=== PATIENT | female | born 1950 | race Two or more races ===

== ENCOUNTER 2025-05-25 08:50 | Inpatient (IN) | payer OTHER ==
[~2025-05-25] VITALS: Ht 162.6 cm; Wt 89.0 kg
[2025-05-25] VITALS (32 sets, daily range): BP systolic 99–154; BP diastolic 39–74; PULSE 90–131; RESP 14–35; TEMP 93.6–97.5; O2SAT 97–100
[2025-05-25] MEDS: SUCCINYLCHOLINE CHLORIDE 20 MG/ML 10ML VIAL IV ONE ×2 (08:57→08:58)
[2025-05-25] MEDS: ETOMIDATE (2MG/ML) 20ML VIAL IV ONE ×2 (08:57→08:58)
--- NOTE | 2025-05-25 09:01 | ED.PDOC ---
SOB-HPI HPI Comments 74 y/o F, BIBA, with known PMHx of HTN presents to the ED for CC of respiratory distress. EMS reports, patient is coming from home where called d/t finding patient unresponsive this morning (05/25/25) in the restroom; LSN was approximately 2200 last night (05/24/25) . Per EMS upon arrival to scene patient was found to have labored breathing with a respiratory rate from 4-15 breaths, tachycardiac with a HR of 135, and hypertensive with a blood pressure of 184/46mmHg. In the field patient was given [id number], with no change in status. Time Seen by MD: 09:00 Reviewed notes: Nurses Notes, Brine Purifier Notes, Medications, Allergies Information Source: Emergency Med Personnel Mode of Arrival: EMS Severity: Moderate Timing: Minutes Duration: Since onset PE Risk Factors: None Prehospital treatment: Other (narcan) Modifying Factors: Nothing Past Medical History PAST MEDICAL HISTORY: HTN Surgical History: Unknown BUSINESS BANKING SALES ASSISTANT History: Unknown Family History Family History: Unknown Social History Smoker: Unknown Alcohol: Unknown Drugs: Unknown Lives In: Home Unable to Obtain due to: Medical Urgency Physical Exam General Appearance: Severe Distress HEENT: Pale [place] (L), Pale [place] (R), TMs Normal Neck: Full Range of Motion, Non-Tender, Normal, Normal Inspection Respiratory: Chest Non-Tender, Lungs Clear, No Accessory Muscle Use, No Respiratory Distress, Normal Breath Sounds Cardiovascular: No Edema, No JVD, No Murmur, No Gallop, Tachycardia Breast Exam: Deferred Gastrointestinal: No Organomegaly, Non Tender, No Pulsatile Mass, Normal Bowel Sounds, Soft Genitalia: Deferred Pelvic: Deferred Rectal: Deferred Extremities: No calf tenderness, Normal capillary refill, No pedal edema Musculoskeletal : Apperance: Normal Neurologic: Motor Weakness, Other (The patient is altered at this time) Cerebellar Function: Unable to Test Reflexes: NOT DONE Skin: Dry, Pallor, Warm Lymphatic: No Adenopathy EKG EKG : Pulse Rate (adult): 122 [place]: Normal Cardiac Rhythm: Afib Block: None Hypertrophy: None ST: Normal Was a procedure done? 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: Other medical staff Indication: Hypotension, CVP monitoring, Suspected infection Room prepared for procedure: Yes Plastics Bench Mechanic performed hand hygien: No Maximal sterile barrier precau: Mask/Eye shield, Sterile gown, Cap, Sterlie gloves, Large sterlie drape Skin Preparation: Chlorhexidine gluconate Skin preparation completely dr: Yes Insertion site: Internal jugular Central line catheter type: [id number] dialysis Number of lumens: 3 Central line exchanged over a: No Antiseptic ointment applied to: Yes Post Assessment: Chest X-Ray Informed consent obtained: No Risks/benefits/alt described: No Intubation Indication: Altered Mental Status Pretreated with: Sedation Intubation Approach: Orotracheal Intubation size: cm (8.0, secured 24cm at the teeth ) Informed consent obtained: Yes Risks/benefits/alt described: Yes Differential Dx Differential Diagnosis: Respiratory Distress X-Ray, Labs, Meds, VS Vital Signs Date Time Temp Pulse Resp B/P (MAP) Pulse Ox O2 Delivery O2 Flow Rate FiO2 05/25/25 14:30 98 12 136/59 (84) 100 05/25/25 14:15 141/53 05/25/25 14:15 101 12 137/60 (85) 100 05/25/25 14:00 98 12 128/57 (80) 100 05/25/25 13:45 92 12 130/50 (76) 100 05/25/25 13:30 100 12 126/59 (81) 100 05/25/25 13:25 107 27 113/53 (73) 100 35 05/25/25 13:15 107/53 05/25/25 13:15 115 12 107/53 (71) 100 05/25/25 13:00 111 12 126/50 (75) 100 05/25/25 13:00 107 05/25/25 12:45 107 12 149/62 (91) 100 05/25/25 12:30 109 12 155/71 (99) 100 05/25/25 12:15 152/68 05/25/25 12:15 110 12 146/67 (93) 100 05/25/25 12:00 123 12 147/75 (99) 100 05/25/25 11:45 109 12 155/78 (103) 100 05/25/25 11:30 88 12 151/74 (99) 100 05/25/25 11:15 105 12 154/74 (100) 100 05/25/25 11:15 154/74 05/25/25 11:05 110 31 156/73 (100) 100 40 05/25/25 11:00 104 12 154/88 (110) 100 05/25/25 10:45 111 12 159/77 (104) 100 05/25/25 10:30 108 12 157/89 (111) 100 05/25/25 10:25 106 13 163/69 (100) 100 05/25/25 10:15 138/79 05/25/25 10:15 105 12 138/79 (98) 100 05/25/25 10:06 98 55 05/25/25 10:05 106 13 164/80 (108) 100 05/25/25 10:00 102 13 166/88 (114) 100 05/25/25 09:55 113 13 161/81 (107) 100 05/25/25 09:50 191/98 05/25/25 09:40 118 18 191/98 (129) 100 05/25/25 09:38 193/104 05/25/25 09:35 118 18 191/98 (129) 100 05/25/25 09:30 93.2 131 17 186/82 (116) 100 93.2 05/25/25 09:30 131 17 100 Mechanical Ventilator+ 100 100 05/25/25 09:16 119 05/25/25 09:10 122 05/25/25 09:00 93.2 131 17 186/82 100 93.2 05/25/25 09:00 98 19 203/107 (139) 100 100 05/25/25 08:59 122 Lab Test 05/25/25 12:46 05/25/25 11:00 05/25/25 10:23 05/25/25 10:14 Range/Units Sodium Level 151 H 136-145 mmol/L Potassium Level 5.3 H 3.5-5.1 mmol/L Chloride Level 107 98-107 mmol/L Carbon Dioxide Level < 10 *L 20-31 mmol/L Anion Gap 34.34065 H 5-15 Blood Urea Nitrogen 19 9-23 mg/dL Creatinine 2.11 #H 0.550-1.02 mg/dL Glomerular Filtration Rate Calc 24 >90 mL/min BUN/Creatinine Ratio 9.0 L 10.0-20.0 Serum Glucose 126 H 74-106 mg/dL Calcium Level 10.3 8.7-10.4 mg/dL Total Bilirubin 0.5 0.2-1.0 mg/dL Aspartate Amino Transferase (AST) 86 H 13-40 U/L Alanine Aminotransferase (ALT) 36 7-40 U/L Alkaline Phosphatase 140 H 46-116 U/L Troponin I High Sensitivity 14 5 </=34 ng/L Total Protein 8.9 H 5.7-8.2 g/dL Albumin 5.2 H 3.2-4.8 g/dL Lactic Acid Level 9.9 *H 0.4-2.0 mmol/L Urine Color Light-yellow Yellow Urine Clarity Clear Clear Urine pH 5.0 5.0-9.0 Urine Specific [place] 1.015 1.001-1.035 Urine Protein 1+ H Negative Urine Ketones Negative Negative Urine Blood 1+ H Negative /uL Urine Nitrite Negative Negative Urine Bilirubin Negative Negative Urine Urobilinogen Normal Negative mg/dL Urine Leukocyte Esterase Negative Negative /uL Urine RBC 1 0 - 4 /hpf Urine Microscopic WBC 1 0-5 /HPF Urine Squamous Epithelial Cells Few <5 /hpf Urine Uric Acid Crystals Few None Seen /hpf Urine Bacteria Few H None Seen /hpf Urine Glucose Normal Normal mg/dL Urine Opiates Screen Neg NEGATIVE Urine Fentanyl Screen Neg NEGATIVE Urine Barbiturates Screen Neg NEGATIVE Urine Phencyclidine Screen Neg NEGATIVE Urine Amphetamines Screen Neg NEGATIVE Urine Benzodiazepines Screen Neg NEGATIVE Urine Cocaine Screen Neg NEGATIVE Urine Cannabinoids Screen Neg NEGATIVE Test 05/25/25 10:00 05/25/25 09:07 Range/Units Blood Gas Specimen Type Arterial Blood Gas Sample Site Right radial Blood Gas Patient Temperature 37.0 Arterial Blood Date Drawn [id number] Arterial Blood pH < 6.710 *L 7.350-7.450 Arterial Blood Partial Pressure CO2 17.4 *L 32.0-45.0 mmHg Arterial Blood Partial Pressure O2 484.8 *H 83.0-108.0 mmHg Arterial Blood Oxygen Saturation 99.8 H 94.0-98.0 % Arterial Blood Oxyhemoglobin 98.6 H 94.0-98.0 % Arterial Blood Carboxyhemoglobin 0.3 L 0.5-1.5 % Arterial Blood Methemoglobin 0.9 0.0-1.5 % Epifanio Test Modified Blood Gas Total Hemoglobin 17.60 H 12.0-16.0 g/dL Blood Gas Set Respiration Rate 18.0 Blood Gas Modality Vent - ac FiO2 % 100.0 Blood Gas Tidal Volume 400.0 Blood Gas PEEP or CPAP 5.0 Blood Gas Critical Value Read Back Yes Blood Gas Notified Whom Ariel villalpando md Blood Gas Notified Time [id number] Blood Gas Notified By Ariel españa rrt White Blood Count 28.9 H 4.4-10.8 10^3/uL Red Blood Count 5.17 4.0-5.20 10^6/uL Hemoglobin 16.1 12.2-16.2 g/dL Hematocrit 53.6 H 36.0-46.0 % Mean Corpuscular Volume 103.6 H 80.0-100.0 fL Mean Corpuscular Hemoglobin 31.1 28.0-32.0 pg Mean Corpuscular Hemoglobin Concent 30.1 L 32.0-36.0 g/dL Red Cell Distribution Width 14.1 11.8-14.3 % Platelet Count 231 140-450 10^3/uL Mean Platelet Volume 10.4 6.9-10.8 fL Neutrophils (%) (Auto) 37.0-80.0 % Lymphocytes (%) (Auto) 10.0-50.0 % Monocytes (%) (Auto) 0.0-12.0 % Basophils (%) (Auto) 0.0-2.0 % Neutrophils # (Auto) 1.6-8.6 10 ^3/uL Lymphocytes # (Auto) 0.4-5.4 10 ^3/uL Monocytes # (Auto) 0-1.3 10 ^3/uL Differential Total Cells Counted 100.0 100 Neutrophils % (Manual) 72 37.0-80.0 Band Neutrophils % (Manual) 6 Lymphocytes % (Manual) 11 10.0-50.0 Monocytes % (Manual) 8 0-12 Eosinophils % (Manual) 2 0-7 Basophils % (Manual) 0 0.0-2.0 Metamyelocytes % (manual) 0 Myelocytes % (Manual) 0 Promyelocytes % (Manual) 0 Blast Cells % (Manual) 0 Reactive Lymphocytes 1 Platelet Estimate Adequate Hypochromasia (manual) Moderate Macrocytosis Slight Sodium Level 147 H 136-145 mmol/L Potassium Level 4.9 3.5-5.1 mmol/L Chloride Level 107 98-107 mmol/L Carbon Dioxide Level < 10 *L 20-31 mmol/L Anion Gap 30.38346 H 5-15 Blood Urea Nitrogen 18 9-23 mg/dL Creatinine 1.51 H 0.550-1.02 mg/dL Glomerular Filtration Rate Calc 36 >90 mL/min BUN/Creatinine Ratio 11.9 10.0-20.0 Serum Glucose 118 H 74-106 mg/dL Lactic Acid Level 9.8 *H 0.4-2.0 mmol/L Calcium Level 10.2 8.7-10.4 mg/dL Troponin I High Sensitivity < 3 L </=34 ng/L Salicylates Level < 3.0 -30 mg/dL Acetaminophen Level < 2.0 L 10.0-20.0 UG/ML Plasma/Serum Blood Alcohol < 3.0 <10 mg/dL Current Medications Medications (Trade) Dose Ordered Sig/Jeremy Route Start Time Stop Time Status Last Admin Etomidate 20 mg ONCE ONCE IV 05/25/25 08:53 05/25/25 08:58 DC 05/25/25 08:57 Succinylcholine Chloride (Quelicin) 80 mg ONCE ONCE IV 05/25/25 08:53 05/25/25 08:58 DC 05/25/25 08:57 Propofol 100 ml @ 2.409 mls/ hr Q24H IV 05/25/25 09:30 05/25/25 09:38 Sodium Bicarbonate 50 ml ONCE ONCE IV 05/25/25 10:30 05/25/25 10:31 DC 05/25/25 11:56 Sodium Bicarbonate 50 ml/ Sodium Chloride 1,050 ml @ 50 mls/hr ONCE ONCE IV 05/25/25 10:30 05/25/25 15:04 DC 05/25/25 13:47 Sodium Bicarbonate 50 ml ONCE ONCE IV 05/25/25 10:30 05/25/25 10:31 DC 05/25/25 10:30 Sodium Chloride 1,650 ml @ 1,650 mls/hr ONCE ONCE IV 05/25/25 10:30 05/25/25 11:29 DC 05/25/25 10:30 Vancomycin HCl 250 ml @ 250 mls/hr ONCE ONCE IV 05/25/25 10:30 05/25/25 11:29 DC 05/25/25 10:30 Ceftriaxone Sodium 50 ml @ 100 mls/hr ONCE ONCE IV 05/25/25 10:30 05/25/25 10:59 DC 05/25/25 10:30 IV Hep-Lock was established. The patient was given etomidate 20 mg IV push and succinylcholine 80 mg IV push for intubation for sedation, the patient was also given propofol Blood cultures x2 were drawn. The patient was then started on vancomycin and Rocephin We continue to keep the patient sedated with a propofol. The patient's pH came back at 6.7 so the patient was then given sodium bicarbonate to address the acidosis. The troponin level is negative The salicylate level and acetaminophen level are negative The initial lactic acid level came back at 9.8 with a CBC white blood cell count of 28.9. The patient's CO2 level was less than 10 The anion gap is greater than 30 At this time, we are admitting the patient to the hospitalist After the patient was intubated we did put a central line in the left internal jugular region The urine tox is negative in the urine test is negative for any infection A Courtney catheter was placed An NG-tube was placed. The patient is being admitted at this time Critical care was done Bedside evaluation as well as interpretation of labs and imaging Images Reviewed?: Images reviewed and evaluated by me Time of 1ST Reevaluation: 09:30 Reevaluation 1ST: Unchanged Patient Education/Counseling: Pt Unresponsive Family Education/Counseling: Diagnosis, Treatment, Prognosis SEPSIS Sepsis Screen Physician Orders Chest Portable (05/25/25 09:09) Head Without Contrast (05/25/25 09:01) Courtney Catheters (05/25/25 09:01) Ngt/Ogt (05/25/25 09:01) Per Diem Nurse (05/25/25 09:01) Pulse Oximetry (05/25/25 09:01) Blood Pressure (05/25/25 09:01) Heplock Iv (05/25/25 09:01) Blood Culture (05/25/25 09:01) Electrocardigram (05/25/25 10:01) Electrocardigram (05/25/25 12:01) Ventilator Orders (05/25/25 09:04) Abg W/ Co-Ox (05/25/25 10:00) Respiratory Culture W/ Gs (05/25/25 09:04) Respiratory Misc. Order (05/25/25 09:12) Propofol (Diprivan) (05/25/25 09:30) Rass Sedation Scale Q1HR (05/25/25 09:20) Chest Xray 1 View (05/25/25 12:16) Vital Signs Date Time Temp Pulse Resp B/P (MAP) Pulse Ox O2 Delivery O2 Flow Rate FiO2 05/25/25 14:30 98 12 136/59 (84) 100 05/25/25 14:15 141/53 05/25/25 14:15 101 12 137/60 (85) 100 05/25/25 14:00 98 12 128/57 (80) 100 05/25/25 13:45 92 12 130/50 (76) 100 05/25/25 13:30 100 12 126/59 (81) 100 05/25/25 13:25 107 27 113/53 (73) 100 35 05/25/25 13:15 107/53 05/25/25 13:15 115 12 107/53 (71) 100 05/25/25 13:00 111 12 126/50 (75) 100 05/25/25 13:00 107 05/25/25 12:45 107 12 149/62 (91) 100 05/25/25 12:30 109 12 155/71 (99) 100 05/25/25 12:15 152/68 05/25/25 12:15 110 12 146/67 (93) 100 05/25/25 12:00 123 12 147/75 (99) 100 05/25/25 11:45 109 12 155/78 (103) 100 05/25/25 11:30 88 12 151/74 (99) 100 05/25/25 11:15 105 12 154/74 (100) 100 05/25/25 11:15 154/74 05/25/25 11:05 110 31 156/73 (100) 100 40 05/25/25 11:00 104 12 154/88 (110) 100 05/25/25 10:45 111 12 159/77 (104) 100 05/25/25 10:30 108 12 157/89 (111) 100 05/25/25 10:25 106 13 163/69 (100) 100 05/25/25 10:15 138/79 05/25/25 10:15 105 12 138/79 (98) 100 05/25/25 10:06 98 55 05/25/25 10:05 106 13 164/80 (108) 100 05/25/25 10:00 102 13 166/88 (114) 100 05/25/25 09:55 113 13 161/81 (107) 100 05/25/25 09:50 191/98 05/25/25 09:40 118 18 191/98 (129) 100 05/25/25 09:38 193/104 05/25/25 09:35 118 18 191/98 (129) 100 05/25/25 09:30 93.2 131 17 186/82 (116) 100 93.2 05/25/25 09:30 131 17 100 Mechanical Ventilator+ 100 100 05/25/25 09:16 119 05/25/25 09:10 122 05/25/25 09:00 93.2 131 17 186/82 100 93.2 05/25/25 09:00 98 19 203/107 (139) 100 100 05/25/25 08:59 122 Laboratory Tests Test 05/25/25 09:07 05/25/25 11:00 Lactic Acid Level 9.8 mmol/L (0.4-2.0) *H 9.9 mmol/L (0.4-2.0) *H White Blood Count 28.9 10^3/uL (4.4-10.8) H Medications Medications Dose Ordered Sig/Jeremy Route Start Time Stop Time Status Last Admin Dose Admin Ceftriaxone Sodium 50 ml @ 100 mls/hr ONCE ONCE IV 05/25/25 10:30 05/25/25 10:59 DC 05/25/25 10:30 Etomidate 20 mg ONCE ONCE IV 05/25/25 08:53 05/25/25 08:58 DC 05/25/25 08:57 Propofol 100 ml @ 2.409 mls/ hr Q24H IV 05/25/25 09:30 05/25/25 09:38 Sodium Bicarbonate 50 ml/ Sodium Chloride 1,050 ml @ 50 mls/hr ONCE ONCE IV 05/25/25 10:30 05/25/25 15:04 DC 05/25/25 13:47 Sodium Bicarbonate 50 ml ONCE ONCE IV 05/25/25 10:30 05/25/25 10:31 DC 05/25/25 11:56 Sodium Bicarbonate 50 ml ONCE ONCE IV 05/25/25 10:30 05/25/25 10:31 DC 05/25/25 10:30 Sodium Chloride 1,650 ml @ 1,650 mls/hr ONCE ONCE IV 05/25/25 10:30 05/25/25 11:29 DC 05/25/25 10:30 Succinylcholine Chloride 80 mg ONCE ONCE IV 05/25/25 08:53 05/25/25 08:58 DC 05/25/25 08:57 Vancomycin HCl 250 ml @ 250 mls/hr ONCE ONCE IV 05/25/25 10:30 05/25/25 11:29 DC 05/25/25 10:30 Departure 1 Departure Time of Disposition: 16:11 Impression: Primary Impression: Acute respiratory failure Qualified Codes: J96.01 - Acute respiratory failure with hypoxia Additional Impression: Metabolic encephalopathy Disposition: ADMITTED INPATIENT Admit to: ICU Condition: Critical Critical Care Note Critical Care Time?: Yes (55 min-critical care time only) Stability Stability form required: Yes Unstable for transfer: ICU, CCU, PCU, ZACKARY (Intensive VS monitoring), ED Physician Assesment (Clinical assesment) Heart Score Heart Score: Heart Score Response (Comments) Value History N/A 0 EKG N/A 0 Age N/A 0 Risk Factors N/A 0 Troponin N/A 0 Total 0 I personally scribed for DAVID VILLALPANDO MD ([email or web address]) on 05/25/25 at 09:01. Electronically submitted by Kalpana Navarrete ([email or web address]). I personally scribed for DAVID VILLALPANDO MD ([email or web address]) on 05/25/25 at 09:10. Electronically submitted by Kalpana Navarrete ([email or web address]). I personally scribed for DAVID VILLALPANDO MD ([email or web address]) on 05/25/25 at 09:39. Electronically submitted by Kalpana Navarrete ([email or web address]). DAVID VILLALPANDO MD May 25, 2025 09:01
--- NOTE | 2025-05-25 09:04 | ECG ---
[facility]– [place] Test Date: 2025-05-25 Test Time: 08:59:53 Pat Name: ONEYDA BAUER Department: [facility] ED Patient ID: [id number] Room: Gender: F Insect Control Aide: : 1950 Requested By: DAVID VILLALPANDO Order Number: [id number] Reading MD: Measurements Intervals [place] Rate: 122 P: 0 VT: 0 QRS: 56 QRSD: 78 T: 57 QT: 350 QTc: 499 Interpretive Statements Atrial fibrillation Abnormal R-wave progression, early transition Minimal ST depression, anterolateral leads Borderline prolonged QT interval Please click the below link to view image of tracing.
[2025-05-25] MEDS: PROPOFOL 100 ML IV ONE (09:28)
--- NOTE | 2025-05-25 09:36 | DVH ---
CHEST RADIOGRAPH Indication: ET TUBE PLACEMENT Technique: Single frontal view of the chest was obtained Comparison: None FINDINGS: Lines and Tubes: The endotracheal tube terminates in the right mainstem bronchus. Lungs: No focal consolidation. Pleura: No effusion. No pneumothorax. Cardiomediastinal contours: Unremarkable Bones: No acute osseous abnormality. IMPRESSION: 1. Endotracheal tube terminates in the right mainstem bronchus. Recommend retraction by 3 cm. 2. No cardiopulmonary process.
[2025-05-25] MEDS: PROPOFOL 100 ML IV SCH (09:38)
[2025-05-25 09:39] LABS: Hematocrit 53.6 % (36.0-46.0); Hemoglobin 16.1 g/dL (12.2-16.2); Mean Corpuscular Hemoglobin 31.1 pg (28.0-32.0); Mean Corpuscular Volume 103.6 fL (80.0-100.0)
[2025-05-25 09:59] LABS: Chloride 107 mmol/L (98-107); Potassium 4.9 mmol/L (3.5-5.1)
[2025-05-25 10:00] LABS: Anion Gap 30.00001 (5-15); Calcium 10.2 mg/dL (8.7-10.4)
[2025-05-25 10:05] LABS: BUN/Creatinine Ratio 11.9 (10.0-20.0); Blood Urea Nitrogen 18 mg/dL (9-23); Total Cells Counted 100.0 (100)
[2025-05-25 10:06] LABS: Macrocytosis Slight
[2025-05-25 10:08] LABS: Glucose 118 mg/dL (74-106); Sodium 147 mmol/L (136-145)
[2025-05-25 10:10] LABS: Lactic Acid w/Reflex 9.8 mmol/L (0.4-2.0)
--- NOTE | 2025-05-25 10:10 | DVH ---
EXAM: CT HEAD WITHOUT CONTRAST INDICATION: aloc TECHNIQUE: CT of the head without intravenous contrast. Coronal and sagittal reformatted images are s ubmitted. Radiation Dose : 1. Head: CT Dose: CTDI volume is 53.3 mGy. Dose-length product is 1049.3 mGy*cm The dose indicators for CT are the volume Computed Tomography (CT) Dose Index (CTDIvol) and the Dose Length Product (DLP), and are measured in units of mGy and mGy-cm, respectively. These indicators are not patient dose, but values generated from the CT scanner acquisition factors. The report includes radiation exposure data for exposures received during this examination. All CT scans at this medical facility are performed using dose modulation techniques as appropriate to a performed exam including the following: Automated exposure control was utilized; adjustment of the MA and/or KV according to patient size; and use of iterative reconstruction technique. COMPARISON: None FINDINGS: There is no evidence of acute intracranial hemorrhage, extra-axial collection, mass effect, midline s hift, herniation or hydrocephalus. The ventricles, sulci and cisterns are age appropriate. The langley-white differentiation is intact. The visualized paranasal sinuses and mastoid air cells are clear. No depressed calvarial fracture. The surrounding soft tissues are unremarkable. IMPRESSION: 1. No evidence of acute intracranial abnormality.
[2025-05-25 10:11] LABS: Carbon Dioxide < 10 mmol/L (20-31)
[2025-05-25] MEDS: SODIUM BICARB 8.4% 50Meq/50ml SYR Vial IV ONE ×5 (10:30→23:39)
[2025-05-25] MEDS: SODIUM CHLORIDE 0.9% 1,650 ML IV ONE (10:30)
[2025-05-25] MEDS: VANCOMYCIN 1GM/250ML KIT 250 ML IV ONE (10:30)
[2025-05-25 10:42] LABS: Acetaminophen < 2.0 UG/ML (10.0-20.0); Salicylate < 3.0 mg/dL (-30)
[2025-05-25 10:43] LABS: Urine Protein, UAD 1+ (Negative)
[2025-05-25 10:54] LABS: Amphetamine Screen, Urine Neg (NEGATIVE); Barbiturate Scree,Urine Neg (NEGATIVE); Benzodiazephine Screen, Urine Neg (NEGATIVE); Cannabinoid Screen, Urine Neg (NEGATIVE); Cocaine Screen, Urine Neg (NEGATIVE); Opiate Scree,Urine Neg (NEGATIVE); Phencyclidine Screen, Urine Neg (NEGATIVE)
--- NOTE | 2025-05-25 12:52 | DVH ---
CHEST RADIOGRAPH Indication: CENTRAL LINE PLACEMENT Technique: Single frontal view of the chest was obtained Comparison: XY CHEST PORTABLE on DOS: 05/25/25 FINDINGS: Lines and Tubes: The endotracheal tube terminates 2.9 cm above the asya. Left central venous callie ter terminates in the superior vena cava. The enteric tube terminates in the upper esophagus at the l evel of the thoracic inlet. Lungs: No focal consolidation. Pleura: No effusion. No pneumothorax. Cardiomediastinal contours: Unremarkable Bones: No acute osseous abnormality. IMPRESSION: 1. The enteric tube terminates in the upper esophagus at the level of the thoracic inlet. Recommend advancement. 2. Left central venous catheter terminates in the superior vena cava. Endotracheal tube terminates 2. 9 cm inappropriate position. 3. No acute cardiopulmonary disease.
[2025-05-25] MEDS: SODIUM BICARB 50mEq/50ml Vial 50 ML in SOD CHL 0.45% 1,000 ML IV ONE (13:47)
[2025-05-25] MEDS ORDERED: PIPERACILLIN-TAZO 4.5GM 100 ML IV ONE (14:45)
[2025-05-25] MEDS: SODIUM CHLORIDE 0.9% 1,000 ML IV ONE ×2 (14:45→19:01)
[2025-05-25] MEDS: MIDAZOLAM DRIP 50 mg/50mL 50 ML IV SCH (15:23)
[2025-05-25] MEDS: NOREPINEPHRINE 8 MG/250ML KIT 250 ML IV SCH (15:23)
[2025-05-25] MEDS: PANTOPRAZOLE 40 MG/10 ML VIAL INJ IV ONE (15:24)
[2025-05-25 15:40] LABS: Alanine Aminotransferase 36 U/L (7-40); Anion Gap 34.00001 (5-15); BUN/Creatinine Ratio 9.0 (10.0-20.0); Blood Urea Nitrogen 19 mg/dL (9-23); Calcium 10.3 mg/dL (8.7-10.4); Chloride 107 mmol/L (98-107)
[2025-05-25 15:41] LABS: Bilirubin, Total 0.5 mg/dL (0.2-1.0)
[2025-05-25 15:43] LABS: Glucose 126 mg/dL (74-106); Potassium 5.3 mmol/L (3.5-5.1); Sodium 151 mmol/L (136-145)
[2025-05-25 15:44] LABS: Albumin 5.2 g/dL (3.2-4.8); Alkaline Phosphatase 140 U/L (46-116); Carbon Dioxide < 10 mmol/L (20-31); Total Protein 8.9 g/dL (5.7-8.2)
[2025-05-25] MEDS: PIPERACILLIN-TAZOB 3.375GM 100 ML IV SCH (15:44)
[2025-05-25] MEDS: IOHEXOL 350 MG/ML 100ML IJ ONE (16:58)
--- NOTE | 2025-05-25 17:47 | DVHHPRES ---
History of Present Illness Resident Creating Document: JHSERENA GARZA RESIDENT History of Present Illness Patient is a 74-year-old female with a medical history of hypertension was brought to the ER with a chief complaint of altered mental status and labored breathing. As per the family patient was apparently doing well until last night and only complained of constipation and was not eating well for the last 3-4 weeks. In the morning patient was found in the restroom altered and had labored breathing but was still responsive, there was a large bowel movement and the patient had vomited, no blood in the vomitus, was yellowish in color. Per EMS upon arrival to scene patient was found to have labored breathing with a respiratory rate from 4-15 breaths, tachycardiac with a HR of 135, and hypertensive with a blood pressure of 184/46mmHg. On arrival to the ER patient was altered and had to be intubated and put on mechanical ventilation for airway protection and respiratory distress. Past medical history: Hypertension, major depression but not on any medication Past surgical history: Cholecystectomy Social history: No reported alcohol, smoking, drug use and lives with the Home medications: Lisinopril 10 mg Review of Systems Review of Systems Patient intubated and on mechanical ventilation. Allergies: Coded Allergies: NO KNOWN ALLERGIES (Unverified , 05/25/25) Medications Current Medications Medications Dose Ordered Sig/Jeremy Route Start Time Stop Time Status Last Admin Dose Admin Propofol 100 ml @ 2.409 mls/ hr Q24H IV 05/25/25 09:30 05/25/25 09:38 2.409 MLS/HR Piperacillin Sod/ Tazobactam Sod 100 ml @ 25 mls/hr Q8HR IV 05/25/25 15:15 05/25/25 15:44 25 MLS/HR Midazolam HCl 50 ml @ 1 mls/hr Q24H IV 05/25/25 14:45 05/25/25 15:23 1 MLS/HR Norepinephrine Bitartrate 250 ml @ 3.75 mls/hr Q24H IV 05/25/25 14:45 05/25/25 15:23 3.75 MLS/HR Pantoprazole Sodium 40 mg DAILY IV 05/26/25 10:00 Exam Vital Signs Vital Signs Date Time Temp Pulse Resp B/P (MAP) Pulse Ox O2 Delivery O2 Flow Rate FiO2 05/25/25 17:00 103 12 109/43 (65) 99 05/25/25 15:50 35 05/25/25 09:30 93.2 93.2 05/25/25 09:30 Mechanical Ventilator+ Exam Gen - no pallor, no icterus, no peripheral edema . Skin - Patients skin is warm and dry, with a cool extremities HEENT - normocephalic, atraumatic, dry mucous membranes. Neck - full ROM, no LAD, no JVD Pulmonary - B/L equal breath sounds, no crackles, no wheezing cardiovascular - irregularly irregular S1,S2 heard, no added sounds, no murmurs heard. peripheral pulses normal radial 2+, pedal 2+. capillary refill normal >4 secs. GI - soft, nondistended abdomen. Bowel sounds absent/hypoactive Neurological - Patient is sedated and on mechanical ventilation. Pupils constricted but reactive, gag reflex present Labs/Xrays Labs Test 05/25/25 17:01 05/25/25 12:46 05/25/25 11:00 05/25/25 10:23 Range/Units Blood Gas Specimen Type Arterial Blood Gas Sample Site Right radial Blood Gas Patient Temperature 37.0 Arterial Blood Date Drawn [id number] Arterial Blood pH < 6.710 *L 7.350-7.450 Arterial Blood Partial Pressure CO2 20.3 L 32.0-45.0 mmHg Arterial Blood Partial Pressure O2 194.7 H 83.0-108.0 mmHg Arterial Blood Oxygen Saturation 98.4 H 94.0-98.0 % Arterial Blood Oxyhemoglobin 97.0 94.0-98.0 % Arterial Blood Carboxyhemoglobin 0.3 L 0.5-1.5 % Arterial Blood Methemoglobin 1.1 0.0-1.5 % Epifanio Test Modified Blood Gas Total Hemoglobin 14.50 12.0-16.0 g/dL Blood Gas Set Respiration Rate 18.0 Blood Gas Modality Vent - ac FiO2 % 35.0 Blood Gas Tidal Volume 400.0 Blood Gas PEEP or CPAP 5.0 Blood Gas Critical Value Read Back yes Blood Gas Notified Whom dr. patel Blood Gas Notified Time [id number] Blood Gas Notified By mina españa rrt Sodium Level 151 H 136-145 mmol/L Potassium Level 5.3 H 3.5-5.1 mmol/L Chloride Level 107 98-107 mmol/L Carbon Dioxide Level < 10 *L 20-31 mmol/L Anion Gap 34.19403 H 5-15 Blood Urea Nitrogen 19 9-23 mg/dL Creatinine 2.11 #H 0.550-1.02 mg/dL Glomerular Filtration Rate Calc 24 >90 mL/min BUN/Creatinine Ratio 9.0 L 10.0-20.0 Serum Glucose 126 H 74-106 mg/dL Calcium Level 10.3 8.7-10.4 mg/dL Total Bilirubin 0.5 0.2-1.0 mg/dL Aspartate Amino Transferase (AST) 86 H 13-40 U/L Alanine Aminotransferase (ALT) 36 7-40 U/L Alkaline Phosphatase 140 H 46-116 U/L Troponin I High Sensitivity 14 </=34 ng/L Total Protein 8.9 H 5.7-8.2 g/dL Albumin 5.2 H 3.2-4.8 g/dL Lactic Acid Level 9.9 *H 0.4-2.0 mmol/L Urine Color Light-yellow Yellow Urine Clarity Clear Clear Urine pH 5.0 5.0-9.0 Urine Specific [place] 1.015 1.001-1.035 Urine Protein 1+ H Negative Urine Ketones Negative Negative Urine Blood 1+ H Negative /uL Urine Nitrite Negative Negative Urine Bilirubin Negative Negative Urine Urobilinogen Normal Negative mg/dL Urine Leukocyte Esterase Negative Negative /uL Urine RBC 1 0 - 4 /hpf Urine Microscopic WBC 1 0-5 /HPF Urine Squamous Epithelial Cells Few <5 /hpf Urine Uric Acid Crystals Few None Seen /hpf Urine Bacteria Few H None Seen /hpf Urine Glucose Normal Normal mg/dL Urine Opiates Screen Neg NEGATIVE Urine Fentanyl Screen Neg NEGATIVE Urine Barbiturates Screen Neg NEGATIVE Urine Phencyclidine Screen Neg NEGATIVE Urine Amphetamines Screen Neg NEGATIVE Urine Benzodiazepines Screen Neg NEGATIVE Urine Cocaine Screen Neg NEGATIVE Urine Cannabinoids Screen Neg NEGATIVE Test 05/25/25 09:07 Range/Units White Blood Count 28.9 H 4.4-10.8 10^3/uL Red Blood Count 5.17 4.0-5.20 10^6/uL Hemoglobin 16.1 12.2-16.2 g/dL Hematocrit 53.6 H 36.0-46.0 % Mean Corpuscular Volume 103.6 H 80.0-100.0 fL Mean Corpuscular Hemoglobin 31.1 28.0-32.0 pg Mean Corpuscular Hemoglobin Concent 30.1 L 32.0-36.0 g/dL Red Cell Distribution Width 14.1 11.8-14.3 % Platelet Count 231 140-450 10^3/uL Mean Platelet Volume 10.4 6.9-10.8 fL Neutrophils (%) (Auto) 37.0-80.0 % Lymphocytes (%) (Auto) 10.0-50.0 % Monocytes (%) (Auto) 0.0-12.0 % Basophils (%) (Auto) 0.0-2.0 % Neutrophils # (Auto) 1.6-8.6 10 ^3/uL Lymphocytes # (Auto) 0.4-5.4 10 ^3/uL Monocytes # (Auto) 0-1.3 10 ^3/uL Differential Total Cells Counted 100.0 100 Neutrophils % (Manual) 72 37.0-80.0 Band Neutrophils % (Manual) 6 Lymphocytes % (Manual) 11 10.0-50.0 Monocytes % (Manual) 8 0-12 Eosinophils % (Manual) 2 0-7 Basophils % (Manual) 0 0.0-2.0 Metamyelocytes % (manual) 0 Myelocytes % (Manual) 0 Promyelocytes % (Manual) 0 Blast Cells % (Manual) 0 Reactive Lymphocytes 1 Platelet Estimate Adequate Hypochromasia (manual) Moderate Macrocytosis Slight Salicylates Level < 3.0 -30 mg/dL Acetaminophen Level < 2.0 L 10.0-20.0 UG/ML Plasma/Serum Blood Alcohol < 3.0 <10 mg/dL SEPSIS Sepsis Screen Date sepsis recognized/suspect: May 25, 2025 Time Sepsis recognized/suspect: 929 Recent Procedure: No On Antibiotic Therapy: No Respiratory Rate >20: Yes Heart Rate >90: Yes Temp<36 C (96.8 F) or >38.3 C: Yes SBP <90 or MAP <65 mmHG: No New Acute Mental Status Change: Yes Is the patient on CPAP, BIPAP,: Yes Physician Orders Chest Xray 1 View (05/25/25 12:16) Admit (05/25/25 14:37) Oxygen By Nasal Cannula (05/25/25 14:37) Stat Ekg For Chest Pain (05/25/25 14:37) Notify Of Changes From Base (05/25/25 14:37) Wildlife Rehabilitator For 24 Hours (05/25/25 14:37) Emergency Dysrhythmia Protocol (05/25/25 14:37) Rhythm Strips Once Every Shift (05/25/25 14:37) Piperacillin-Tazob 3.375gm (Zosyn 3.375g (05/25/25 15:15) Sodium Chloride 0.9% (05/25/25 14:45) Midazolam Drip 50 Mg/50ml (Versed Drip 5 (05/25/25 14:45) Rass Sedation Scale Q1HR (05/25/25 14:37) Sodium Bicarb 50meq/50ml Vial (05/25/25 14:45) Norepinephrine 8 Mg/250ml Kit (Levophed) (05/25/25 14:45) Pantoprazole (Protonix) (05/26/25 10:00) Angio Aortic Abdominal (05/25/25 14:37) Abg W/ Co-Ox (05/25/25 16:56) Ventilator Orders (05/25/25 17:34) Calcium Gluc 1,000mg/50ml-Ns (05/25/25 17:45) Mrsa Screen (05/25/25 17:43) Vital Signs Date Time Temp Pulse Resp B/P (MAP) Pulse Ox O2 Delivery O2 Flow Rate FiO2 05/25/25 17:00 103 12 109/43 (65) 99 05/25/25 16:45 103 12 145/61 (89) 99 05/25/25 16:30 98 12 155/72 (99) 99 05/25/25 16:15 98 12 154/79 (104) 100 05/25/25 16:00 97 12 152/66 (94) 100 05/25/25 15:56 100 12 148/70 (96) 99 05/25/25 15:50 106 29 154/74 99 35 05/25/25 15:45 99 12 146/67 (93) 100 05/25/25 15:31 106 29 154/74 (100) 99 35 05/25/25 15:30 99 12 150/65 (93) 100 05/25/25 15:23 149/66 05/25/25 15:23 149/66 05/25/25 15:15 100 12 152/67 (95) 100 05/25/25 15:00 100 12 148/70 (96) 100 05/25/25 14:45 101 12 134/66 (88) 100 05/25/25 14:30 98 12 136/59 (84) 100 05/25/25 14:15 137/60 05/25/25 14:15 101 12 137/60 (85) 100 05/25/25 14:00 98 12 128/57 (80) 100 05/25/25 13:45 92 12 130/50 (76) 100 05/25/25 13:30 100 12 126/59 (81) 100 05/25/25 13:25 107 27 113/53 (73) 100 35 05/25/25 13:15 107/53 05/25/25 13:15 115 12 107/53 (71) 100 05/25/25 13:00 111 12 126/50 (75) 100 05/25/25 13:00 107 05/25/25 12:45 107 12 149/62 (91) 100 05/25/25 12:30 109 12 155/71 (99) 100 05/25/25 12:15 152/68 05/25/25 12:15 110 12 146/67 (93) 100 05/25/25 12:00 123 12 147/75 (99) 100 05/25/25 11:45 109 12 155/78 (103) 100 05/25/25 11:30 88 12 151/74 (99) 100 05/25/25 11:15 105 12 154/74 (100) 100 05/25/25 11:15 154/74 05/25/25 11:05 110 31 156/73 (100) 100 40 05/25/25 11:00 104 12 154/88 (110) 100 05/25/25 10:45 111 12 159/77 (104) 100 05/25/25 10:30 108 12 157/89 (111) 100 05/25/25 10:25 106 13 163/69 (100) 100 05/25/25 10:15 138/79 05/25/25 10:15 105 12 138/79 (98) 100 05/25/25 10:06 98 55 05/25/25 10:05 106 13 164/80 (108) 100 05/25/25 10:00 102 13 166/88 (114) 100 05/25/25 09:55 113 13 161/81 (107) 100 05/25/25 09:50 191/98 Laboratory Tests Test 05/25/25 09:07 05/25/25 11:00 Lactic Acid Level 9.8 mmol/L (0.4-2.0) *H 9.9 mmol/L (0.4-2.0) *H White Blood Count 28.9 10^3/uL (4.4-10.8) H Medications Medications Dose Ordered Sig/Jeremy Route Start Time Stop Time Status Last Admin Dose Admin Ceftriaxone Sodium 50 ml @ 100 mls/hr ONCE ONCE IV 05/25/25 10:30 05/25/25 10:59 DC 05/25/25 10:30 100 MLS/HR Etomidate 20 mg ONCE ONCE IV 05/25/25 08:53 05/25/25 08:58 DC 05/25/25 08:57 20 MG Midazolam HCl 50 ml @ 1 mls/hr Q24H IV 05/25/25 14:45 05/25/25 15:23 1 MLS/HR Norepinephrine Bitartrate 250 ml @ 3.75 mls/hr Q24H IV 05/25/25 14:45 05/25/25 15:23 3.75 MLS/HR Pantoprazole Sodium 40 mg ONCE ONCE IV 05/25/25 14:45 05/25/25 15:12 DC 05/25/25 15:24 40 MG Piperacillin Sod/ Tazobactam Sod 100 ml @ 25 mls/hr Q8HR IV 05/25/25 15:15 05/25/25 15:44 25 MLS/HR Propofol 100 ml @ 2.409 mls/ hr Q24H IV 05/25/25 09:30 05/25/25 09:38 2.409 MLS/HR Sodium Bicarbonate 50 ml/ Sodium Chloride 1,050 ml @ 50 mls/hr ONCE ONCE IV 05/25/25 10:30 05/25/25 15:04 DC 05/25/25 13:47 50 MLS/HR Sodium Bicarbonate 50 ml ONCE ONCE IV 05/25/25 10:30 05/25/25 10:31 DC 05/25/25 11:56 50 ML Sodium Bicarbonate 50 ml ONCE ONCE IV 05/25/25 10:30 05/25/25 10:31 DC 05/25/25 10:30 50 ML Sodium Bicarbonate 100 ml ONCE ONCE IV 05/25/25 14:45 05/25/25 16:03 DC 05/25/25 16:34 100 ML Sodium Chloride 1,000 ml @ 1,000 mls/hr Q1H ONCE IV 05/25/25 14:45 05/25/25 15:44 DC 05/25/25 14:45 1,000 MLS/HR Sodium Chloride 1,650 ml @ 1,650 mls/hr ONCE ONCE IV 05/25/25 10:30 05/25/25 11:29 DC 05/25/25 10:30 1,650 MLS/HR Succinylcholine Chloride 80 mg ONCE ONCE IV 05/25/25 08:53 05/25/25 08:58 DC 05/25/25 08:57 80 MG Vancomycin HCl 250 ml @ 250 mls/hr ONCE ONCE IV 05/25/25 10:30 05/25/25 11:29 DC 05/25/25 10:30 250 MLS/HR Assessment/Plan Assessment/Plan Acute metabolic encephalopathy likely due to toxin ingestion - ( since the patient continued to have severe metabolic acidosis in the evening and no source was found, on further interviewing the family for the possibility of toxin injection with the daughter reported that she might have ingested Lysol ,as a bottle was found empty, patient has previous history of major depression and suicidal ideation) - on mechanical ventilation - NG tube to LIS - sedated with a RASS of -4 Respiratory failure likely secondary to severe metabolic acidosis - on mechanical ventilation with a rate of 30 and tidal volume 8 mL/kg at 450 mL - serial ABG showed severe metabolic acidosis without respiratory compensation Atrial fibrillation, new onset/paroxysmal Hypovolemic/distributive shock likely from toxin ingestion - Patient currently not started on any anticoagulation Severe anion gap metabolic acidosis Severe lactic acidosis Elevated serum osmolal gap likely due to toxin ingestion PAPO on CKD likely due to with VMN/toxin mediated injury - serum bicarbonate pushes - patient on serum bicarbonate drip - nephrology consultation - IV fluids - strict input and output History of constipation Ruled out mesenteric ischemia Infectious/inflammatory enterocolitis - IV antibiotics with the Zosyn - IV fluids - NG to LIS Leukocytosis likely reactive Coagulopathy - monitor labs and for any signs of bleeding PUD prophylaxis: Protonix DVT prophylaxis: Currently SCDs Goals of care discussed with the patient's family including son and daughter Evelin. They were explained about the patient being critically ill. Code status: DNR Critical care time spent excluding procedures: 82 minutes Plan discussed with Dr. Garcia Plan discussed with: Daughter, Son, Other (RN Romy) My Orders Orders - SERENA PATEL Procedure Category Date Status Time Admit ADMIT 05/25/25 Transmitted 14:37 Oxygen By Nasal RT 05/25/25 Transmitted Cannula 14:37 Stat Ekg For Chest TAMIKO 05/25/25 In Process Pain 14:37 Notify Md Of Changes TAMIKO 05/25/25 In Process From Base 14:37 Wildlife Rehabilitator For TAMIKO 05/25/25 In Process 24 Hours 14:37 Emergency Dysrhythmia TAMIKO 05/25/25 In Process Protocol 14:37 Rhythm Strips Once TAMIKO 05/25/25 In Process Every Shift 14:37 Piperacillin-Tazob PHA 05/25/25 In Process 3.375gm (Zosyn 3.375g 15:15 Sodium Chloride 0.9% PHA 05/25/25 In Process 14:45 Midazolam Drip 50 PHA 05/25/25 In Process Mg/50ml (Versed Drip 5 14:45 Rass Sedation Scale TAMIKO 05/25/25 In Process 14:37 Sodium Bicarb PHA 05/25/25 In Process 50meq/50ml Vial 14:45 Norepinephrine 8 PHA 05/25/25 In Process Mg/250ml Kit 14:45 Pantoprazole PHA 05/26/25 In Process (Protonix) 10:[address] 05/25/25 Taken 14:37 Abg W/ Co-Ox RT 05/25/25 Logged 16:56 Ventilator Orders RT 05/25/25 Transmitted 17:34 Calcium Gluc PHA 05/25/25 In Process 1,000mg/50ml-Ns 17:45 Mrsa Screen JADA 05/25/25 Logged 17:43 Date of Service: May 25, 2025 Billing Provider: TERRY GARCIA MD Common Visit Codes: 28081-TWYNCCOC CARE 30-74 MIN, 77118-[id number] CARE-EACH +30MIN SERENA PATEL May 25, 2025 17:47
[2025-05-25] MEDS: SODIUM BICARB 50mEq/50ml Vial 150 ML in D5W 5% 1,000 ML IV ONE (18:00)
--- NOTE | 2025-05-25 18:39 | DVH ---
Procedure: CT ANGIO AORTIC ABDOMINAL HISTORY: severe sepsis, a.fib, absent bowel sounds Comparison Study: None Exam Date:05/25/2025 05:11 PM TECHNIQUE: CTA scanner volumetric data acquisition of abdomen and pelvis was obtained following intravenous admi nistration of intravenous contrast without any reported adverse effects. Axial images were reconstru cted and additional sagittal and coronal images were reformatted. arterial phase imaging were perfor med. Postprocessing was also performed on a Separate workstation. 3D images were performed on a dedicated workstation and reviewed for reporting. Radiation Dose : CT Dose: CTDI volume is 22.25 mGy. Dose-length product is 3.92 mGy*cm FINDINGS: Vascular: No acute GI hemorrhage identified. The mesenteric vessels are patent. No evidence of acute mesenteric ischemia. There is normal caliber of abdominal aorta without evidence of aortic dissection or aneurysm. ariane l caliber The mesenteric, and bilateral renal, iliac and femoral arteries are widely patent without any focal stenosis or aneurysm. Lung Bases: No acute or significant lung base finding. Normal heart size. No pleural or pericardial effusion. Liver: The liver is normal in size. No focal lesions. Normal hepatic vascular enhancement. Diffuse s teatosis. Gallbladder and Biliary Tree: Unremarkable Spleen: Unremarkable Pancreas: The pancreas is normal in appearance without focal lesions or abnormal enhancement. Adrenal Glands: Unremarkable Kidneys: Kidneys demonstrate normal symmetric enhancement without focal lesions, calculi or hydroneph rosis. Bladder: Bladder is decompressed with a Courtney catheter and cannot be adequately assessed. Bowel: The stomach is grossly normal in appearance. Concentric wall thickening is seen in multiple lo ops of small bowel and colon suggestive of infectious / inflammatory enterocolitis. Normal appendix is visualized in the right lower quadrant without findings of appendicitis. Rectal tube is noted. Ascites: Absent Lymphadenopathy: No mesenteric, retroperitoneal or periportal lymphadenopathy. Abdominal Wall and Mesentery: Unremarkable. Vasculature: The visualized abdominal aorta is normal in size and caliber. Abdominal and pelvic vess els demonstrate normal enhancement. Pelvic Organs: Unremarkable Musculoskeletal: No aggressive focal bony lesions, acute fractures or dislocation. Mild compression d eformity of the L1 vertebral body. IMPRESSION: 1. No acute GI hemorrhage identified. 2. No evidence of acute mesenteric ischemia. 3. Concentric wall thickening is seen in multiple loops of small bowel and colon suggestive of infect ious / inflammatory enterocolitis.
[2025-05-25] MEDS: InsuLIN REG 1unit/0.01ml Soln (100units/ml) IV ONE ×2 (18:59→21:30)
[2025-05-25] MEDS ORDERED: VANCOMYCIN PER PHARMACY 0 MG IV SCH (19:00)
[2025-05-25] MEDS: DEXTROSE (50%) 50ML SYRG IV ONE ×2 (19:01→21:25)
[2025-05-25] MEDS: CALCIUM GLUC 1,000mg/50ml-NS 50 ML IV ONE ×3 (19:01→22:10)
[2025-05-25 19:51] LABS: Hematocrit 45.8 % (36.0-46.0); Hemoglobin 13.3 g/dL (12.2-16.2); Mean Corpuscular Hemoglobin 31.2 pg (28.0-32.0); Mean Corpuscular Volume 107.6 fL (80.0-100.0)
[2025-05-25 19:59] LABS: Chloride 107 mmol/L (98-107)
[2025-05-25 20:00] LABS: Anion Gap 37.00001 (5-15)
[2025-05-25 20:01] LABS: Calcium 8.8 mg/dL (8.7-10.4)
[2025-05-25 20:05] LABS: BUN/Creatinine Ratio 11.2 (10.0-20.0)
[2025-05-25 20:07] LABS: Blood Urea Nitrogen 29 mg/dL (9-23); Glucose 233 mg/dL (74-106); Potassium 5.4 mmol/L (3.5-5.1); Sodium 154 mmol/L (136-145)
[2025-05-25 20:13] LABS: Macrocytosis Moderate; Total Cells Counted 100.0 (100)
[2025-05-25 20:15] LABS: Protein, Urine 101.7 mg/dL (1-14)
[2025-05-25 20:16] LABS: Carbon Dioxide < 10 mmol/L (20-31); Lactic Acid w/Reflex 11.3 mmol/L (0.4-2.0)
[2025-05-25] MEDS: fentaNYL Drip 2500mCg/250mlNS 250 ML IV SCH (20:44)
[2025-05-25] MEDS ORDERED: CALCIUM CHL 100MG/ML 500 MG in D5W 5% 100 ML IV ONE (20:45)
[2025-05-25] MEDS: SODIUM CHLORIDE 0.9% 2,000 ML IV ONE (20:56)
[2025-05-25 22:08] LABS: INR 1.18 (0.9-1.15); Partial Thromboplastin Time 66.1 SEC (24.5-34.5); Prothrombin Time 12.3 sec (9.3-11.8)
[2025-05-26] VITALS (127 sets, daily range): BP systolic 76–152; BP diastolic 27–81; PULSE 60–132; RESP 14–33; TEMP 97.5–98.6; O2SAT 96–100
[2025-05-26 01:49] LABS: Base Excess -30.8 mmol/L (-2.0-3.0)
[2025-05-26 02:18] LABS: Hemoglobin 12.4 g/dL (12.2-16.2)
[2025-05-26 02:20] LABS: Hematocrit 40.3 % (36.0-46.0); Mean Corpuscular Hemoglobin 30.7 pg (28.0-32.0); Mean Corpuscular Volume 99.7 fL (80.0-100.0)
[2025-05-26 02:32] LABS: Alanine Aminotransferase 32 U/L (7-40); Albumin 3.2 g/dL (3.2-4.8); Alkaline Phosphatase 97 U/L (46-116); Anion Gap 40.00001 (5-15); BUN/Creatinine Ratio 12.3 (10.0-20.0); Magnesium 2.2 mg/dL (1.6-2.6); Potassium 4.3 mmol/L (3.5-5.1)
[2025-05-26] MEDS: SODIUM BICARB 8.4% 50Meq/50ml SYR Vial IV ONE ×3 (02:32→06:40)
[2025-05-26 02:33] LABS: Bilirubin, Total 0.3 mg/dL (0.2-1.0)
[2025-05-26 02:34] LABS: Blood Urea Nitrogen 38 mg/dL (9-23); Calcium 8.1 mg/dL (8.7-10.4); Chloride 110 mmol/L (98-107); Glucose 198 mg/dL (74-106); Sodium 160 mmol/L (136-145)
[2025-05-26 02:35] LABS: Carbon Dioxide < 10 mmol/L (20-31); Total Protein 5.4 g/dL (5.7-8.2)
[2025-05-26 02:38] LABS: Lactic Acid w/Reflex 9.2 mmol/L (0.4-2.0)
[2025-05-26 03:03] LABS: Nucleated Red Blood Cells % 1.0 %; Smudge Cells 3 /100 WBC; Total Cells Counted 100.0 (100)
[2025-05-26] MEDS: SOD CHL 0.45% 500 ML IV ONE (03:43)
[2025-05-26] MEDS: LACTULOSE 20Gm/30ML SOLN PO ONE (03:44)
--- NOTE | 2025-05-26 04:19 | DVH ---
CHEST RADIOGRAPH Indication: NG TUBE Technique: 1 view Comparison: XY CHEST XRAY 1 VIEW on DOS: 05/25/25, XY CHEST PORTABLE on DOS: 05/25/25 FINDINGS: Lines and Tubes: Unchanged. Lungs/Pleura: Development of mild bilateral interstitial opacities. No evident pleural effusion or p neumothorax. Cardiomediastinum: Unchanged. Other: Unchanged osseous structures. IMPRESSION: 1. Slightly more conspicuous interstitial opacities suggesting edema. No other significant interval c hange from the previous day. 2. Stable support devices.
[2025-05-26 04:29] LABS: Base Excess -29.3 mmol/L (-2.0-3.0)
[2025-05-26] MEDS: D5W 5% 1,000 ML IV SCH (05:13)
[2025-05-26] MEDS: FREE WATER GT SCH (05:18)
[2025-05-26] MEDS: LACTULOSE 20Gm/30ML SOLN PO SCH (05:18)
[2025-05-26] MEDS ORDERED: D5W 5% 1,000 ML IV SCH (05:30)
[2025-05-26] MEDS ORDERED: DEXTROSE (50%) 50ML SYRG IV PRN (05:30)
[2025-05-26] MEDS: VASOPRESSIN 20 UNIT/ML ONE (05:45)
[2025-05-26 05:46] LABS: Urine Budding Yeast MODERATE /hpf (None Seen); Urine Protein, UAD TRACE (Negative)
[2025-05-26] MEDS: DOPamine 1600MCG/ML D5W 250 ML IV SCH (05:50)
[2025-05-26] MEDS: VASOPRESSIN 20 UNITS in SODIUM CHL 0.9% 99 ML IV SCH (05:57)
[2025-05-26] MEDS: DOPamine 1600MCG/ML D5W 250 ML IV ONE (05:57)
[2025-05-26] MEDS: HEPARIN 1,000 UNITS/ml 1ML VIAL ONE (05:58)
[2025-05-26 06:28] LABS: INR 1.24 (0.9-1.15); Partial Thromboplastin Time 45.3 SEC (24.5-34.5); Prothrombin Time 12.9 sec (9.3-11.8)
[2025-05-26] MEDS: SODIUM CHL 0.9% 1000 ML BAG XX ONE (06:30)
--- NOTE | 2025-05-26 07:12 | DVHNC2 ---
Central Line Recorder of insertion practice: Color Specialist Occupation of health nurse: Other Indication: Other (Dialysis) Room prepared for procedure: Yes Color Specialist performed hand hygien: Yes Maximal sterile barrier precau: Mask/Eye shield, Sterile gown, Cap, Sterlie gloves, Large sterlie drape Skin Preparation: Chlorhexidine gluconate Skin preparation completely dr: Yes Insertion site: Right Central line catheter type: Dialysis non-tunneled Number of lumens: 2 Central line exchanged over a: No Antiseptic ointment applied to: Yes Post Assessment: Chest X-Ray, Proper placement, No Pneumothorax Informed consent obtained: Yes Risks/benefits/alt described: Yes Notes Catheter placed under the supervision of Dr. Barahona. Date of Service: May 26, 2025 Billing Provider: EDITH BARAHONA MD Common Visit Codes: PROCEDURE ONLY KIRSTIE MUNIZ RESIDENT May 26, 2025 07:12
[2025-05-26] MEDS: ALBUMIN 25% 100 ML IV PRN (07:25)
[2025-05-26] MEDS: PHENYLEPHRINE IV 250 ML IV ONE (07:37)
[2025-05-26] MEDS ORDERED: PHENYLEPHRINE IV 250 ML IV SCH (07:45)
[2025-05-26] MEDS: InsuLIN REG 1unit/0.01ml Soln (100units/ml) SC SCH (08:00)
[2025-05-26] MEDS: EPINEPHrine HCL 250 ML IV SCH (08:30)
[2025-05-26 09:05] LABS: Hematocrit 38.3 % (36.0-46.0); Hemoglobin 12.5 g/dL (12.2-16.2)
[2025-05-26] MEDS: ACCU-CHEK COMFORT CURVE STRIP VI SCH (09:19)
[2025-05-26 09:27] LABS: Amphetamine Screen, Urine Neg (NEGATIVE); Barbiturate Scree,Urine Neg (NEGATIVE); Benzodiazephine Screen, Urine Neg (NEGATIVE); Cocaine Screen, Urine Neg (NEGATIVE); Opiate Scree,Urine Neg (NEGATIVE); Phencyclidine Screen, Urine Neg (NEGATIVE)
[2025-05-26 09:28] LABS: Cannabinoid Screen, Urine Neg (NEGATIVE)
[2025-05-26 09:35] LABS: Chloride 102 mmol/L (98-107); Potassium 3.5 mmol/L (3.5-5.1); Sodium 158 mmol/L (136-145)
[2025-05-26 09:36] LABS: Anion Gap 44 (5-15)
[2025-05-26 09:37] LABS: Calcium 8.1 mg/dL (8.7-10.4); Carbon Dioxide 12 mmol/L (20-31)
[2025-05-26 09:41] LABS: BUN/Creatinine Ratio 8.7 (10.0-20.0); Blood Urea Nitrogen 25 mg/dL (9-23); Glucose 182 mg/dL (74-106)
[2025-05-26 09:45] LABS: Iron 206.0 ug/dL (50-170); Total Iron Binding Capacity 191.0 ug/dL (250-425)
--- NOTE | 2025-05-26 10:05 | DVHINCON2 ---
Date of service: May 26, [address] Patel Reason for Consultation Acute kidney injury History of Present Illness Patient is 74-year-old female with past medical history known for hypertension and depression is admitted after was found altered by her with empty bottle of Lysol. Patient is intubated on the ventilator. Nephrology is consulted for acute kidney injury Past Medical History Hypertension Depression Past Surgical History Unknown Allergies: Coded Allergies: NO KNOWN ALLERGIES (Unverified , 05/25/25) Current Medications Current Medications Medications (Trade) Dose Ordered Sig/Jeremy Route PRN Reason Start Time Stop Time Status Last Admin Piperacillin Sod/ Tazobactam Sod 100 ml @ 25 mls/hr Q8HR IV 05/25/25 15:15 05/26/25 11:16 DC 05/26/25 05:17 Midazolam HCl 50 ml @ 1 mls/hr Q24H IV 05/25/25 14:45 05/26/25 08:21 Norepinephrine Bitartrate 250 ml @ 3.75 mls/hr Q24H IV 05/25/25 14:45 05/26/25 08:57 DC 05/26/25 07:13 Pantoprazole Sodium (Protonix) 40 mg DAILY IV 05/26/25 10:00 05/26/25 11:10 Vancomycin HCl 0 ml @ 0 mls/hr UD IV 05/25/25 19:00 05/26/25 05:25 DC Fentanyl Citrate 250 ml @ 2.5 mls/hr Q24H IV 05/25/25 20:00 05/26/25 08:27 Linezolid 300 ml @ 150 mls/hr Q12HR IV 05/26/25 10:00 05/26/25 11:10 Lactulose 30 ml Q4HR PO 05/26/25 06:00 05/26/25 05:18 Purified Water 250 ml Q4HR GT 05/26/25 06:00 05/26/25 05:18 Diagnostic Test (Pha) (Accu-Chek Comfort Curve T) 1 strip IQ4HR 05/26/25 08:00 05/26/25 09:19 Insulin Human Regular (InsuLIN R) IQ4HR SC 05/26/25 08:00 Dextrose 50 ml UD PRN IV Blood Sugar LESS THAN 60 05/26/25 05:30 Dextrose 1,000 ml @ 75 mls/hr [id number] IV 05/26/25 05:30 05/26/25 10:44 DC Vasopressin 20 units/Sodium Chloride 100 ml @ 9 mls/hr Q11H7M IV 05/26/25 05:45 05/26/25 05:57 Dopamine HCl/ Dextrose 250 ml @ 14.25 mls/ hr [id number] IV 05/26/25 05:45 05/26/25 05:50 Albumin Human 100 ml @ 100 mls/hr PRN PRN IV for B/P support during HD 05/26/25 07:15 05/26/25 23:59 Phenylephrine HCl 250 ml @ 30 mls/hr Q8H20M IV 05/26/25 07:45 05/26/25 08:58 DC Epinephrine HCl 250 ml @ 7.5 mls/hr Q24H IV 05/26/25 08:30 Phenylephrine HCl 80 mg/Sodium Chloride 250 ml @ 7.5 mls/hr Q24H IV 05/26/25 08:45 05/26/25 10:40 Norepinephrine Bitartrate 32 mg/ Sodium Chloride 250 ml @ 0.938 mls/ hr Q24H IV 05/26/25 08:45 05/26/25 10:41 Dextrose 1,000 ml @ 100 mls/hr Q10H IV 05/26/25 10:45 05/26/25 11:10 Piperacillin Sod/ Tazobactam Sod 100 ml @ 25 mls/hr Q12H IV 05/26/25 18:00 Family History: Patient reports no known family medical history. Review of Systems Can not be reviewed H&P Exam Vital Signs/I&O Vital Sign Date Time Temp Pulse Resp B/P (MAP) Pulse Ox O2 Delivery O2 Flow Rate FiO2 05/26/25 10:37 73 32 108/30 (56) 100 35 05/26/25 06:00 Mechanical Ventilator+ 05/26/25 04:00 97.5 97.5 Intake and Output 05/25/25 05/26/25 19:00 07:00 Intake Total 1657.974 ml 1329.587 ml Output Total 350 ml 40 ml Balance 1307.974 ml 1289.587 ml Intake IV Total 1657.974 ml 1329.587 ml Output Urine Total 350 ml 40 ml Physical Exam Patient examined hemodialysis, blood pressure is stable Patient intubated on ventilator Lungs clear to auscultation bilaterally Cardiac exam is tachycardic GI soft bowel sounds are present Courtney catheter Extremities no clubbing cyanosis or edema Neuro patient is a sedated Labs/Diagnostic Data Labs/Diagnostic Data Laboratory Tests Test 05/26/25 08:58 05/26/25 08:15 05/26/25 05:22 05/26/25 04:22 Range/Units POC Glucose 180 H 70-106 mg/dl Hemoglobin 12.5 12.2-16.2 g/dL Hematocrit 38.3 36.0-46.0 % Sodium Level 158 H 136-145 mmol/L Potassium Level 3.5 3.5-5.1 mmol/L Chloride Level 102 98-107 mmol/L Carbon Dioxide Level 12 L 20-31 mmol/L Anion Gap 44 H 5-15 Blood Urea Nitrogen 25 #H 9-23 mg/dL Creatinine 2.88 H 0.550-1.02 mg/dL Glomerular Filtration Rate Calc 16 >90 mL/min BUN/Creatinine Ratio 8.7 L 10.0-20.0 Serum Glucose 182 H 74-106 mg/dL Calcium Level 8.1 L 8.7-10.4 mg/dL Iron Level 206 H 50-170 ug/dL Total Iron Binding Capacity 191 L 250-425 ug/dL Percent Iron Saturation 107.9 H 15-50 % Ferritin 318.9 H 10-291 ng/mL Ammonia 63 H 11-32 umol/L Vitamin D 25-Hydroxy 29.4 L 30.0-100 ng/mL Hepatitis B Surface Antigen Negative Negative Urine Color Light-yellow Yellow Urine Clarity Turbid H Clear Urine pH 6.5 5.0-9.0 Urine Specific [place] 1.011 1.001-1.035 Urine Protein Trace H Negative Urine Ketones Negative Negative Urine Blood 2+ H Negative /uL Urine Nitrite 2+ H Negative Urine Bilirubin Negative Negative Urine Urobilinogen Normal Negative mg/dL Urine Leukocyte Esterase 3+ Negative /uL Urine RBC 32 0 - 4 /hpf Urine Microscopic WBC 104 H 0-5 /HPF Urine Squamous Epithelial Cells None seen <5 /hpf Urine Bacteria Few H None Seen /hpf Urine Granular Casts Few 0 /lpf Urine Yeast (Budding) Moderate None Seen /hpf Urine Creatinine 70.72 30.0-125.0 mg/dL Urine Sodium 58 40-220 mmol/L Urine Glucose Normal Normal mg/dL Urine Opiates Screen Neg NEGATIVE Urine Fentanyl Screen Neg NEGATIVE Urine Barbiturates Screen Neg NEGATIVE Urine Phencyclidine Screen Neg NEGATIVE Urine Amphetamines Screen Neg NEGATIVE Urine Benzodiazepines Screen Neg NEGATIVE Urine Cocaine Screen Neg NEGATIVE Urine Cannabinoids Screen Neg NEGATIVE Blood Gas Specimen Type Arterial Blood Gas Sample Site Right radial Blood Gas Patient Temperature 37.0 Arterial Blood Date Drawn [id number] Arterial Blood pH 6.869 *L 7.350-7.450 Arterial Blood Partial Pressure CO2 16.9 *L 32.0-45.0 mmHg Arterial Blood Partial Pressure O2 185.3 H 83.0-108.0 mmHg Arterial Blood HCO3 3.0 L 21.0-28.0 mmol/L Arterial Blood Oxygen Saturation 98.0 94.0-98.0 % Arterial Blood Base Excess -29.3 L -2.0-3.0 mmol/L Arterial Blood Oxyhemoglobin 96.9 94.0-98.0 % Arterial Blood Carboxyhemoglobin 0.2 L 0.5-1.5 % Arterial Blood Methemoglobin 0.9 0.0-1.5 % Epifanio Test Modified Blood Gas Total Hemoglobin 13.50 12.0-16.0 g/dL Blood Gas Set Respiration Rate 26.0 Blood Gas Modality Vent - ac FiO2 % 35.0 Blood Gas Tidal Volume 450.0 Blood Gas PEEP or CPAP 5.0 Blood Gas Critical Value Read Back Yes Blood Gas Notified Whom roula Weeks md Blood Gas Notified Time [id number] Blood Gas Notified By supa Walters chemical engineering intern Test 05/26/25 01:44 05/26/25 01:40 05/25/25 21:42 05/25/25 21:29 Range/Units White Blood Count 39.9 *H 4.4-10.8 10^3/uL Red Blood Count 4.04 4.0-5.20 10^6/uL Hemoglobin 12.4 12.2-16.2 g/dL Hematocrit 40.3 # 36.0-46.0 % Mean Corpuscular Volume 99.7 # 80.0-100.0 fL Mean Corpuscular Hemoglobin 30.7 28.0-32.0 pg Mean Corpuscular Hemoglobin Concent 30.8 L 32.0-36.0 g/dL Red Cell Distribution Width 13.3 11.8-14.3 % Platelet Count 160 140-450 10^3/uL Mean Platelet Volume 9.9 6.9-10.8 fL Neutrophils (%) (Auto) 37.0-80.0 % Lymphocytes (%) (Auto) 10.0-50.0 % Monocytes (%) (Auto) 0.0-12.0 % Basophils (%) (Auto) 0.0-2.0 % Neutrophils # (Auto) 1.6-8.6 10 ^3/uL Lymphocytes # (Auto) 0.4-5.4 10 ^3/uL Monocytes # (Auto) 0-1.3 10 ^3/uL Differential Total Cells Counted 100.0 100 Neutrophils % (Manual) 78 37.0-80.0 Band Neutrophils % (Manual) 2 Lymphocytes % (Manual) 12 10.0-50.0 Monocytes % (Manual) 6 0-12 Eosinophils % (Manual) 0 0-7 Basophils % (Manual) 0 0.0-2.0 Metamyelocytes % (manual) 1 Myelocytes % (Manual) 0 Promyelocytes % (Manual) 0 Blast Cells % (Manual) 0 Nucleated Red Blood Cells 1.0 % Reactive Lymphocytes 1 Smudge Cells 3 /100 WBC Platelet Estimate Adequate Prothrombin Time 12.9 H 9.3-11.8 sec Prothrombin Time INR 1.24 H 0.9-1.15 Activated Partial Thromboplast Time 45.3 H 24.5-34.5 SEC Sodium Level 160 #H 136-145 mmol/L Potassium Level 4.3 3.5-5.1 mmol/L Chloride Level 110 H 98-107 mmol/L Carbon Dioxide Level < 10 *L 20-31 mmol/L Anion Gap 40.06979 H 5-15 Blood Urea Nitrogen 38 H 9-23 mg/dL Creatinine 3.09 H 0.550-1.02 mg/dL Glomerular Filtration Rate Calc 15 >90 mL/min BUN/Creatinine Ratio 12.3 10.0-20.0 Serum Glucose 198 H 74-106 mg/dL Serum Osmolality 379 H 278-298 mOsm/kg Lactic Acid Level 9.2 *H 0.4-2.0 mmol/L Calcium Level 8.1 L 8.7-10.4 mg/dL Phosphorus Level 8.1 H 2.4-5.1 mg/dL Magnesium Level 2.2 1.6-2.6 mg/dL Total Bilirubin 0.3 0.2-1.0 mg/dL Aspartate Amino Transferase (AST) 87 H 13-40 U/L Alanine Aminotransferase (ALT) 32 7-40 U/L Alkaline Phosphatase 97 46-116 U/L Ammonia 354 *H 11-32 umol/L Total Protein 5.4 L 5.7-8.2 g/dL Albumin 3.2 3.2-4.8 g/dL Thyroid Stimulating Hormone (TSH) 3.71 0.55-4.78 uIU/mL Random Vancomycin Level 15.3 H 5-10 ug/mL Plasma/Serum Blood Alcohol < 3.0 <10 mg/dL Blood Gas Specimen Type Arterial Arterial Blood Gas Sample Site Right radial Right radial Blood Gas Patient Temperature 37.0 37.0 Arterial Blood Date Drawn [id number] Arterial Blood pH 6.817 *L < 6.710 *L 7.350-7.450 Arterial Blood Partial Pressure CO2 15.9 *L 18.0 *L 32.0-45.0 mmHg Arterial Blood Partial Pressure O2 185.1 H 187.8 H 83.0-108.0 mmHg Arterial Blood HCO3 2.5 L 21.0-28.0 mmol/L Arterial Blood Oxygen Saturation 98.1 H 98.2 H 94.0-98.0 % Arterial Blood Base Excess -30.8 L -2.0-3.0 mmol/L Arterial Blood Oxyhemoglobin 97.0 97.2 94.0-98.0 % Arterial Blood Carboxyhemoglobin 0.2 L 0.1 L 0.5-1.5 % Arterial Blood Methemoglobin 0.9 0.9 0.0-1.5 % Epifanio Test Modified Modified Blood Gas Total Hemoglobin 13.50 14.10 12.0-16.0 g/dL Blood Gas Set Respiration Rate 26.0 30.0 Blood Gas Modality Vent - ac Vent - ac FiO2 % 35.0 35.0 Blood Gas Tidal Volume 450.0 450.0 Blood Gas PEEP or CPAP 5.0 5.0 Blood Gas Critical Value Read Back Yes Yes Blood Gas Notified Whom roula Weeks md Etchegoyen, m, md Blood Gas Notified Time [id number] Blood Gas Notified By supa Walters, chemical engineering intern Walters, b, chemical engineering intern POC Glucose 182 H 70-106 mg/dl Test 05/25/25 21:21 05/25/25 19:43 05/25/25 19:33 05/25/25 18:59 Range/Units Prothrombin Time 12.3 H 9.3-11.8 sec Prothrombin Time INR 1.18 H 0.9-1.15 Activated Partial Thromboplast Time 66.1 H 24.5-34.5 SEC Lactic Acid Level 9.9 *H 11.3 *H 0.4-2.0 mmol/L Urine Osmolality 528 mOsm/kg Urine Creatinine 27.02 L 30.0-125.0 mg/dL Urine Protein/Creatinine Ratio 3.76 Urine Total Protein 101.7 H 1-14 mg/dL White Blood Count 39.1 #*H 4.4-10.8 10^3/uL Red Blood Count 4.25 4.0-5.20 10^6/uL Hemoglobin 13.3 # 12.2-16.2 g/dL Hematocrit 45.8 # 36.0-46.0 % Mean Corpuscular Volume 107.6 H 80.0-100.0 fL Mean Corpuscular Hemoglobin 31.2 28.0-32.0 pg Mean Corpuscular Hemoglobin Concent 29.0 L 32.0-36.0 g/dL Red Cell Distribution Width 13.8 11.8-14.3 % Platelet Count 200 140-450 10^3/uL Mean Platelet Volume 10.4 6.9-10.8 fL Neutrophils (%) (Auto) 37.0-80.0 % Lymphocytes (%) (Auto) 10.0-50.0 % Monocytes (%) (Auto) 0.0-12.0 % Basophils (%) (Auto) 0.0-2.0 % Neutrophils # (Auto) 1.6-8.6 10 ^3/uL Lymphocytes # (Auto) 0.4-5.4 10 ^3/uL Monocytes # (Auto) 0-1.3 10 ^3/uL Differential Total Cells Counted 100.0 100 Neutrophils % (Manual) 53 37.0-80.0 Band Neutrophils % (Manual) 21 Lymphocytes % (Manual) 16 10.0-50.0 Monocytes % (Manual) 4 0-12 Eosinophils % (Manual) 0 0-7 Basophils % (Manual) 0 0.0-2.0 Metamyelocytes % (manual) 4 Myelocytes % (Manual) 2 Promyelocytes % (Manual) 0 Blast Cells % (Manual) 0 Reactive Lymphocytes 0 Platelet Estimate Adequate Macrocytosis Moderate Sodium Level 154 H 136-145 mmol/L Potassium Level 5.4 H 3.5-5.1 mmol/L Chloride Level 107 98-107 mmol/L Carbon Dioxide Level < 10 *L 20-31 mmol/L Anion Gap 37.22096 H 5-15 Blood Urea Nitrogen 29 #H 9-23 mg/dL Creatinine 2.60 H 0.550-1.02 mg/dL Glomerular Filtration Rate Calc 19 >90 mL/min BUN/Creatinine Ratio 11.2 10.0-20.0 Serum Glucose 233 H 74-106 mg/dL Hemoglobin A1c 5.1 <5.7 % A1C Serum Osmolality 398 H 278-298 mOsm/kg Calcium Level 8.8 8.7-10.4 mg/dL Lactate Dehydrogenase 502 H 120-246 U/L Beta-Hydroxybutyric Acid 0.264 < 0.4 mmol/L POC Glucose 109 H 70-106 mg/dl Test 05/25/25 17:01 05/25/25 12:46 05/25/25 11:00 05/25/25 10:23 Range/Units Blood Gas Specimen Type Arterial Blood Gas Sample Site Right radial Blood Gas Patient Temperature 37.0 Arterial Blood Date Drawn [id number] Arterial Blood pH < 6.710 *L 7.350-7.450 Arterial Blood Partial Pressure CO2 20.3 L 32.0-45.0 mmHg Arterial Blood Partial Pressure O2 194.7 H 83.0-108.0 mmHg Arterial Blood Oxygen Saturation 98.4 H 94.0-98.0 % Arterial Blood Oxyhemoglobin 97.0 94.0-98.0 % Arterial Blood Carboxyhemoglobin 0.3 L 0.5-1.5 % Arterial Blood Methemoglobin 1.1 0.0-1.5 % Epifanio Test Modified Blood Gas Total Hemoglobin 14.50 12.0-16.0 g/dL Blood Gas Set Respiration Rate 18.0 Blood Gas Modality Vent - ac FiO2 % 35.0 Blood Gas Tidal Volume 400.0 Blood Gas PEEP or CPAP 5.0 Blood Gas Critical Value Read Back yes Blood Gas Notified Whom dr. patel Blood Gas Notified Time [id number] Blood Gas Notified By mina españa, chemical engineering intern Sodium Level 151 H 136-145 mmol/L Potassium Level 5.3 H 3.5-5.1 mmol/L Chloride Level 107 98-107 mmol/L Carbon Dioxide Level < 10 *L 20-31 mmol/L Anion Gap 34.22802 H 5-15 Blood Urea Nitrogen 19 9-23 mg/dL Creatinine 2.11 #H 0.550-1.02 mg/dL Glomerular Filtration Rate Calc 24 >90 mL/min BUN/Creatinine Ratio 9.0 L 10.0-20.0 Serum Glucose 126 H 74-106 mg/dL Calcium Level 10.3 8.7-10.4 mg/dL Total Bilirubin 0.5 0.2-1.0 mg/dL Aspartate Amino Transferase (AST) 86 H 13-40 U/L Alanine Aminotransferase (ALT) 36 7-40 U/L Alkaline Phosphatase 140 H 46-116 U/L Troponin I High Sensitivity 14 </=34 ng/L Total Protein 8.9 H 5.7-8.2 g/dL Albumin 5.2 H 3.2-4.8 g/dL Lactic Acid Level 9.9 *H 0.4-2.0 mmol/L Urine Color Light-yellow Yellow Urine Clarity Clear Clear Urine pH 5.0 5.0-9.0 Urine Specific [place] 1.015 1.001-1.035 Urine Protein 1+ H Negative Urine Ketones Negative Negative Urine Blood 1+ H Negative /uL Urine Nitrite Negative Negative Urine Bilirubin Negative Negative Urine Urobilinogen Normal Negative mg/dL Urine Leukocyte Esterase Negative Negative /uL Urine RBC 1 0 - 4 /hpf Urine Microscopic WBC 1 0-5 /HPF Urine Squamous Epithelial Cells Few <5 /hpf Urine Uric Acid Crystals Few None Seen /hpf Urine Bacteria Few H None Seen /hpf Urine Glucose Normal Normal mg/dL Urine Opiates Screen Neg NEGATIVE Urine Fentanyl Screen Neg NEGATIVE Urine Barbiturates Screen Neg NEGATIVE Urine Phencyclidine Screen Neg NEGATIVE Urine Amphetamines Screen Neg NEGATIVE Urine Benzodiazepines Screen Neg NEGATIVE Urine Cocaine Screen Neg NEGATIVE Urine Cannabinoids Screen Neg NEGATIVE Test 05/25/25 10:14 05/25/25 10:00 05/25/25 09:07 Range/Units Troponin I High Sensitivity 5 < 3 L </=34 ng/L Blood Gas Specimen Type Arterial Blood Gas Sample Site Right radial Blood Gas Patient Temperature 37.0 Arterial Blood Date Drawn [id number] Arterial Blood pH < 6.710 *L 7.350-7.450 Arterial Blood Partial Pressure CO2 17.4 *L 32.0-45.0 mmHg Arterial Blood Partial Pressure O2 484.8 *H 83.0-108.0 mmHg Arterial Blood Oxygen Saturation 99.8 H 94.0-98.0 % Arterial Blood Oxyhemoglobin 98.6 H 94.0-98.0 % Arterial Blood Carboxyhemoglobin 0.3 L 0.5-1.5 % Arterial Blood Methemoglobin 0.9 0.0-1.5 % Epifanio Test Modified Blood Gas Total Hemoglobin 17.60 H 12.0-16.0 g/dL Blood Gas Set Respiration Rate 18.0 Blood Gas Modality Vent - ac FiO2 % 100.0 Blood Gas Tidal Volume 400.0 Blood Gas PEEP or CPAP 5.0 Blood Gas Critical Value Read Back Yes Blood Gas Notified Whom Mina carter md Blood Gas Notified Time [id number] Blood Gas Notified By Mina españa rrt White Blood Count 28.9 H 4.4-10.8 10^3/uL Red Blood Count 5.17 4.0-5.20 10^6/uL Hemoglobin 16.1 12.2-16.2 g/dL Hematocrit 53.6 H 36.0-46.0 % Mean Corpuscular Volume 103.6 H 80.0-100.0 fL Mean Corpuscular Hemoglobin 31.1 28.0-32.0 pg Mean Corpuscular Hemoglobin Concent 30.1 L 32.0-36.0 g/dL Red Cell Distribution Width 14.1 11.8-14.3 % Platelet Count 231 140-450 10^3/uL Mean Platelet Volume 10.4 6.9-10.8 fL Neutrophils (%) (Auto) 37.0-80.0 % Lymphocytes (%) (Auto) 10.0-50.0 % Monocytes (%) (Auto) 0.0-12.0 % Basophils (%) (Auto) 0.0-2.0 % Neutrophils # (Auto) 1.6-8.6 10 ^3/uL Lymphocytes # (Auto) 0.4-5.4 10 ^3/uL Monocytes # (Auto) 0-1.3 10 ^3/uL Differential Total Cells Counted 100.0 100 Neutrophils % (Manual) 72 37.0-80.0 Band Neutrophils % (Manual) 6 Lymphocytes % (Manual) 11 10.0-50.0 Monocytes % (Manual) 8 0-12 Eosinophils % (Manual) 2 0-7 Basophils % (Manual) 0 0.0-2.0 Metamyelocytes % (manual) 0 Myelocytes % (Manual) 0 Promyelocytes % (Manual) 0 Blast Cells % (Manual) 0 Reactive Lymphocytes 1 Platelet Estimate Adequate Hypochromasia (manual) Moderate Macrocytosis Slight Sodium Level 147 H 136-145 mmol/L Potassium Level 4.9 3.5-5.1 mmol/L Chloride Level 107 98-107 mmol/L Carbon Dioxide Level < 10 *L 20-31 mmol/L Anion Gap 30.15717 H 5-15 Blood Urea Nitrogen 18 9-23 mg/dL Creatinine 1.51 H 0.550-1.02 mg/dL Glomerular Filtration Rate Calc 36 >90 mL/min BUN/Creatinine Ratio 11.9 10.0-20.0 Serum Glucose 118 H 74-106 mg/dL Lactic Acid Level 9.8 *H 0.4-2.0 mmol/L Calcium Level 10.2 8.7-10.4 mg/dL Salicylates Level < 3.0 -30 mg/dL Acetaminophen Level < 2.0 L 10.0-20.0 UG/ML Plasma/Serum Blood Alcohol < 3.0 <10 mg/dL Assessment Acute kidney injury superimposed Chronic Kidney Disease secondary hemodynamic mediated, IV contrast Acute respiratory failure, patient intubated on ventilator Questionable poisoning with Lysol Septic shock Severe metabolic acidosis Hypernatremia due to dehydration Microcytic anemia Elevated AST and ALT Nephrotic range proteinuria Hyperglycemia Recommendations Continue hemodialysis with high bicarb for electrolytes abnormalities and acid- base No ultrafiltration Closely monitor fluid and electrolytes Avoid nephrotoxic medications Courtney catheter Strict I&Os IVF D5W at 100 cc/hour Insulin sliding scale Check urine electrolytes IV pressors for blood pressure support Patient is a max IV pressors IV antibiotics Poor prognosis Total care time 40 minute Patient seen and examined by myself in the ICU. I discussed my plan of care with the primary nurse at the bedside Plan discussed with: Other (Nurse) HERMELINDA ADDISON MD May 26, 2025 10:05
--- NOTE | 2025-05-26 10:26 | DVHNC2 ---
Arterial Puncture Indication: Assess acid-base status Procedure: Sterile Preparation, Arterial Punct Obtained Location: Right Radial Informed consent obtained: Yes Notes right radial arterial line placed under US guidance and connected arterial pressure monitor Date of Service: May 26, 2025 Billing Provider: ANTHONY ALVA MD Common Visit Codes: PROCEDURE ONLY SERENA HUNT RESIDENT May 26, 2025 10:26
[2025-05-26] MEDS: PHENYLEPHRINE INJ 80 MG in SODIUM CHL 0.9% 242 ML IV SCH (10:40)
[2025-05-26] MEDS: NOREPINEPHRINE BITARTRATE 32 MG in SODIUM CHL 0.9% 218 ML IV SCH (10:41)
--- NOTE | 2025-05-26 10:56 | MEDREC ---
[facility] Intervention Section I [facility] Intervention: Renal dosing adjustment (Patient starting hemodialysis, may consider changing Zosyn dose to 2.25mg Q12H if/when clinically appropriate.) PEG FONTANEZ [facility] RESIDENT May 26, 2025 10:56
[2025-05-26 11:07] LABS: Hepatitis B Surface Antigen Negative (Negative)
--- NOTE | 2025-05-26 11:09 | DVHPNRES ---
Progress Note Date Seen: May 26, 2025 Resident Creating Document: LUANN CHATTERJEE RESDIENT Medical Necessity Reason Pt with a Central, PICC or Fol: Yes Subjective Review of Systems Patient is a 74-year-old female with a medical history of depression hypertension, and constipation was brought in by EMS yesterday morning (05/25) from home with a chief complaint of altered mental status and labored breathing. Per patient's , As per the family patient was apparently doing well until last night and only complained of constipation and was not eating well for the last 3-4 weeks. In the morning patient was found in the restroom altered and had labored breathing but was still responsive, there was a large bowel movement and the patient had vomited, no blood in the vomitus, was yellowish in color. Per EMS upon arrival to scene patient was found to have labored breathing with a respiratory rate from 4-15 breaths, tachycardiac with a HR of 135, and hypertensive with a blood pressure of 184/46mmHg. On arrival to the ER patient was altered and had to be intubated and put on mechanical ventilation for airway protection and respiratory distress. Past medical history: Hypertension, major depression but not on any medication Past surgical history: Cholecystectomy and bladder prolapse surgery Social history: No reported alcohol, smoking, drug use and lives with the , at baseline mobile and does not use any walker/wheelchair Home medications: Lisinopril 10 mg, senna and antiacid Patient seen and examined at the bedside. Patient is sedated and on mechanical ventilation. Objective vital signs Vital Sign Date Time Temp Pulse Resp B/P (MAP) Pulse Ox O2 Delivery O2 Flow Rate FiO2 05/26/25 10:37 73 32 108/30 (56) 100 35 05/26/25 06:00 Mechanical Ventilator+ 05/26/25 04:00 97.5 97.5 Total Intake and Output 05/25/25 05/25/25 05/26/25 15:00 23:00 07:00 Intake Total 1386.135 ml 781.610 ml 819.816 ml Output Total 350 ml 40 ml Balance 1386.135 ml 431.610 ml 779.816 ml medications Current Medications Medications Dose Ordered Sig/Jeremy Route Start Time Stop Time Status Last Admin Dose Admin Propofol 100 ml @ 2.409 mls/ hr Q24H IV 05/25/25 09:30 10/6/25 05:15 14.454 MLS/HR Piperacillin Sod/ Tazobactam Sod 100 ml @ 25 mls/hr Q8HR IV 05/25/25 15:15 05/26/25 05:17 25 MLS/HR Midazolam HCl 50 ml @ 1 mls/hr Q24H IV 05/25/25 14:45 05/26/25 08:21 15 MLS/HR Pantoprazole Sodium 40 mg DAILY IV 05/26/25 10:00 Fentanyl Citrate 250 ml @ 2.5 mls/hr Q24H IV 05/25/25 20:00 05/26/25 08:27 17.5 MLS/HR Linezolid 300 ml @ 150 mls/hr Q12HR IV 05/26/25 10:00 Lactulose 30 ml Q4HR PO 05/26/25 06:00 05/26/25 05:18 30 ML Purified Water 250 ml Q4HR GT 05/26/25 06:00 05/26/25 05:18 250 ML Diagnostic Test (Pha) 1 strip IQ4HR 05/26/25 08:00 05/26/25 09:19 1 STRIP Insulin Human Regular IQ4HR SC 05/26/25 08:00 Dextrose 50 ml UD PRN IV 05/26/25 05:30 Vasopressin 20 units/Sodium Chloride 100 ml @ 9 mls/hr Q11H7M IV 05/26/25 05:45 05/26/25 05:57 9 MLS/HR Dopamine HCl/ Dextrose 250 ml @ 14.25 mls/ hr [id number] IV 05/26/25 05:45 05/26/25 05:50 14.25 MLS/HR Albumin Human 100 ml @ 100 mls/hr PRN PRN IV 05/26/25 07:15 05/26/25 23:59 Epinephrine HCl 250 ml @ 7.5 mls/hr Q24H IV 05/26/25 08:30 Phenylephrine HCl 80 mg/Sodium Chloride 250 ml @ 7.5 mls/hr Q24H IV 05/26/25 08:45 05/26/25 10:40 33.75 MLS/HR Norepinephrine Bitartrate 32 mg/ Sodium Chloride 250 ml @ 0.938 mls/ hr Q24H IV 05/26/25 08:45 05/26/25 10:41 14.063 MLS/HR Dextrose 1,000 ml @ 100 mls/hr Q10H IV 05/26/25 10:45 Examination General: RASS -4, afebrile, mucosae are moist Cardiovascular: Irregular S1 and S2. No murmurs, gallops or rubs Respiratory: Mechanically assisted ventilation, equal bilateral airway entree. Clear lung sounds on auscultation Mechanical ventilation setting: VT 450, RR 26, FiO2 35% and peep 5 GI: Soft, nontender, no organomegaly, decreased bowel sounds, NG tube placed with scant amount of greenish discharge : Courtney catheter n place, no urine output, clear yellow urine in collection bag MSK/skin: Mobilization of limbs cannot be evaluated. Skin is dry and warm. IV accesses: Right IJ Delmer catheter, left IJ central line, right side radial A- line, and right peripheral line Neurological: Orientation cannot be assessed. No apparent motor no sensitive deficits. Bilateral pupils mid dilated, sluggish reaction laboratory and microbiology Laboratory Tests 05/26/25 08:15 05/26/25 01:44 Test 05/26/25 08:15 Range/Units Serum Glucose 182 H 74-106 mg/dL Microbiology Date/Time Source Procedure Growth Status 05/25/25 09:07 Blood Blood Culture - Preliminary NO GROWTH AFTER 24 HOURS OF INCUBATION. Resulted Problem List/Assessment/Plan Problem List/Assessment/Plan This is a 74-year-old female with past medical history of hypertension and depression brought in by EMS due to altered mental status and labored breaths. She was admitted and intubated on 05/25. NEURO: Acute toxic/metabolic encephalopathy, likely due to possible lysol ingestion/metabolic acidosis/sepsis Suicidal attempt, possibly due to antifreeze * Head CT scan 05/25 shows no significant intracranial abnormality * RASS score -4 * Plan: Versed and fentanyl CARDIOVASCULAR: Possible septic/distributive shock New onset atrial fibrillation with RVR Acquired hypercoagulability History of Hypertension * EKGs 05/25, AFib with RVR with no significant ST or T-wave changes * Plan: Continue Levophed, vasopressin, phenylephrine RESPIRATORY: Acute hypoxic respiratory failure, likely due to metabolic encephalopathy * Chest x-ray shows pulmonary vascular congestion * Plan: Mechanical ventilation and IV antibiotic GENITOURINARY/FLUID: PAPO, likely VMN * Hemodialysis performed on 05/26 * Plan: urine microscopy GASTROINTESTINAL/NUTRITION: ?Antifreeze intoxication * Ammonia raised at [phone] * Plan: Protonix 40 b.i.d. and GI evaluation INFECTIOUS DISEASE: Septic shock, due to sepsis Sepsis, likely due to UTI Complicated UTI * UA 05/26 shows turbid urine, blood +2, nitrite +2, leukocyte esterase +3, RBC 32 and WBC 104 * Plan: Panculture, IV antibiotic Zosyn (05/25) and linezolid (05/25) HEMATOLOGY: * DVT prophylaxis: Lovenox ENDOCRINE: Severe Metabolic acidosis with raised anion gap and osmolar gap, possibly due to antifreeze ingestion * 18 ampules of Bicarbonate given * Plan: HD performed on 05/26 METABOLIC: Hyperphosphatemia Hypernatremia, possibly due to bicarbonate * Volume deficits: 5.4L * Plan: D5W at 100 mL/hour MSK/SKIN: * There is a small abrasion with superficial crusted blood on right lower limb DIET: NPO DVT prophylax: Lovenox GI prophylaxis: Protonix Bowel regimen: LINES/DEVICES ETT: Intubated on 05/25 IV access: Right IJ Delmer catheter (05/25), left IJ central line (05/25), right radial A-line (05/26) Drips: Levophed, dopamine, vasopressin, phenylephrine, Versed and fentanyl Courtney catheter: Placed on 05/25 Disposition: Continue ICU status Family: Patients , son and daughter updated at the bedside. Critical care time: Spent >93 min, spent in direct critical care, including evaluation, management, review of labs/imaging, and multidisciplinary/family discussions, (excluding any procedures). Case discussed with Dr. Alva Plan discussed with: Spouse, Daughter, Son, Other My Orders My Orders Orders - HEWADMAL,HEWAD RESDIENT Procedure Category Date Status Time * Tower Switch Operator CONS 05/26/25 Transmitted Consult Dietary Evaluation Review Comments: 1. TPN if NPO>7 days 2. TF glucerna@40ml/hr providing 58g protein, 1152kcal 773ml free water, meeting pt's protein needs 100%, energy need 76% 3. Reassess when pt is extubated Expected Outcomes/Goals: Gradual wt loss, avoid nephrotic syndrome Date of Service: May 26, 2025 Billing Provider: ANTHONY ALVA MD Common Visit Codes: 32498-[id number] CARE 30-74 MIN, 57941-[id number] CARE-EACH +30MIN LUANN CHATTERJEE May 26, 2025 11:09 ANTHONY ALVA MD May 27, 2025 14:43
[2025-05-26] MEDS: PANTOPRAZOLE 40 MG/10 ML VIAL INJ IV SCH ×2 (11:10→22:31)
[2025-05-26] MEDS: LINEZOLID 600MG/300ML 300 ML IV SCH (11:10)
[2025-05-26 11:36] LABS: Hepatitis C Antibody Negative (Negative)
--- NOTE | 2025-05-26 12:17 | DVH ---
CHEST RADIOGRAPH Indication: Post HD catheter placement Technique: Single frontal view of the chest was obtained COMPARISON: XY CHEST PORTABLE on DOS: 05/26/25, XY CHEST XRAY 1 VIEW on DOS: 05/25/25, XY CHEST PORTABL E on DOS: 05/25/25 FINDINGS: Lines and Tubes: Endotracheal tube in satisfactory position, enteric catheter in satisfactory positio n, left central venous catheter in satisfactory position, right central venous catheter in satisfacto ry position. Lungs: Mild pulmonary vascular congestion. Pleura: No effusion. No pneumothorax. Cardiomediastinal contours: Unremarkable. Bones: Unremarkable. IMPRESSION: Lines and tubes in satisfactory position. Mild pulmonary vascular congestion.
[2025-05-26 13:01] LABS: Base Excess -10.5 mmol/L (-2.0-3.0)
[2025-05-26] MEDS: ENOXAPARIN SOD 30 MG/0.3 ML SYRINGE SC ONE (13:36)
[2025-05-26 14:26] LABS: Albumin 3.6 g/dL (3.2-4.8); Alkaline Phosphatase 87 U/L (46-116); Anion Gap 36 (5-15); BUN/Creatinine Ratio 8.0 (10.0-20.0); Bilirubin, Total 0.7 mg/dL (0.2-1.0); Blood Urea Nitrogen 18 mg/dL (9-23); Chloride 100 mmol/L (98-107)
[2025-05-26 14:28] LABS: Alanine Aminotransferase 42 U/L (7-40); Calcium 7.3 mg/dL (8.7-10.4); Carbon Dioxide 14 mmol/L (20-31); Glucose 217 mg/dL (74-106); Potassium 2.6 mmol/L (3.5-5.1); Sodium 150 mmol/L (136-145); Total Protein 5.3 g/dL (5.7-8.2)
[2025-05-26 14:29] LABS: Lactic Acid w/Reflex 10.7 mmol/L (0.4-2.0)
[2025-05-26] MEDS: POTASSIUM CHL 20MEQ/100ML 100 ML IV SCH (15:20)
[2025-05-26] MEDS: THIAMINE 100mg/ml INJ (200mg/2ml VIAL) IV ONE (15:38)
[2025-05-26] MEDS: FOLIC ACID 1 MG in D5W 5% 50 ML INJ ONE (16:42)
[2025-05-26] MEDS ORDERED: POTASSIUM CHL 20MEQ/100ML 100 ML IV SCH (17:15)
[2025-05-26] MEDS: CALCIUM ACETATE 667 MG CAP NG SCH (17:15)
[2025-05-26] MEDS: PIPERACILLIN-TAZOB 3.375GM 100 ML IV SCH (18:29)
[2025-05-26] MEDS: POTASSIUM CHL 20MEQ/100ML 100 ML IV ONE (20:10)
[2025-05-26] MEDS: EPOETIN ALFA-EPBX 10,000 UNIT/1ML VIAL SC ONE (21:00)
[2025-05-27] VITALS (109 sets, daily range): BP systolic 80–179; BP diastolic 41–68; PULSE 63–108; RESP 15–27; TEMP 97.4–98.8; O2SAT 94–100
--- NOTE | 2025-05-27 03:38 | DVH ---
CHEST RADIOGRAPH Indication: Pneumonia Technique: 1 view Comparison: XY CHEST XRAY 1 VIEW on DOS: 05/26/25, XY CHEST PORTABLE on DOS: 05/26/25, XY CHEST XRAY 1 VIEW on DOS: 05/25/25, XY CHEST PORTABLE on DOS: 05/25/25 FINDINGS: Lines and Tubes: Unchanged. Lungs/Pleura: Unchanged. Cardiomediastinum: Unchanged. Other: Unchanged osseous structures. IMPRESSION: 1. No significant change from the previous study. Stable support devices, with the endotracheal tube less than 2 cm above the asya; consider 2-3 cm retraction. 2. Persistent bilateral interstitial opacities.
[2025-05-27 04:17] LABS: Hematocrit 38.1 % (36.0-46.0); Hemoglobin 12.7 g/dL (12.2-16.2); Mean Corpuscular Hemoglobin 30.5 pg (28.0-32.0); Mean Corpuscular Volume 91.7 fL (80.0-100.0); Nucleated Red Blood Cells % 0.1 %
[2025-05-27 04:20] LABS: Albumin 3.5 g/dL (3.2-4.8); Alkaline Phosphatase 83 U/L (46-116); Anion Gap 33 (5-15); BUN/Creatinine Ratio 6.4 (10.0-20.0); Blood Urea Nitrogen 22 mg/dL (9-23); Chloride 100 mmol/L (98-107); Potassium 3.9 mmol/L (3.5-5.1)
[2025-05-27 04:21] LABS: Bilirubin, Total 0.5 mg/dL (0.2-1.0)
[2025-05-27 04:33] LABS: Alanine Aminotransferase 40 U/L (7-40); Calcium 6.8 mg/dL (8.7-10.4); Carbon Dioxide 13 mmol/L (20-31); Glucose 212 mg/dL (74-106); Sodium 146 mmol/L (136-145); Total Protein 5.6 g/dL (5.7-8.2)
[2025-05-27] MEDS ORDERED: SODIUM CHL 0.9% 1000 ML BAG XX ONE (07:00)
[2025-05-27 09:22] LABS: Base Excess -11.8 mmol/L (-2.0-3.0)
[2025-05-27] MEDS: THIAMINE 100mg/ml INJ (200mg/2ml VIAL) IV SCH (10:53)
[2025-05-27] MEDS: ENOXAPARIN SOD 30 MG/0.3 ML SYRINGE SC SCH (10:53)
[2025-05-27 11:06] LABS: Magnesium 1.8 mg/dL (1.6-2.6)
[2025-05-27] MEDS: FOLIC ACID 1 MG in D5W 5% 50 ML INJ SCH (11:06)
--- NOTE | 2025-05-27 11:18 | DVHPN2 ---
Progress Note Date Seen: May 27, 2025 Medical Necessity Reason Pt with a Central, PICC or Fol: Yes Subjective Review of Systems: RESPIRATORY:Abnormal Other Systems: Patient seen and examined by myself today in follow-up Patient examined hemodialysis, blood pressure stable Objective vital signs Vital Sign Date Time Temp Pulse Resp B/P (MAP) Pulse Ox O2 Delivery O2 Flow Rate FiO2 05/27/25 11:05 128/56 05/27/25 10:21 77 26 100 30 05/27/25 08:00 Mechanical Ventilator+ 05/27/25 06:00 98.7 98.7 Total Intake and Output 05/26/25 05/26/25 05/27/25 15:00 23:00 07:00 Intake Total 1975.040 ml 1041.069 ml 1407.818 ml Output Total 310 ml 150 ml Balance 1975.040 ml 731.069 ml 1257.818 ml medications Current Medications Medications Dose Ordered Sig/Jeremy Route Start Time Stop Time Status Last Admin Dose Admin Propofol 100 ml @ 2.409 mls/ hr Q24H IV 05/25/25 09:30 05/26/25 05:15 14.454 MLS/HR Midazolam HCl 50 ml @ 1 mls/hr Q24H IV 05/25/25 14:45 05/27/25 11:05 8 MLS/HR Fentanyl Citrate 250 ml @ 2.5 mls/hr Q24H IV 05/25/25 20:00 05/26/25 23:25 15 MLS/HR Linezolid 300 ml @ 150 mls/hr Q12HR IV 05/26/25 10:00 05/27/25 09:56 150 MLS/HR Purified Water 250 ml Q4HR GT 05/26/25 06:00 05/26/25 05:18 250 ML Diagnostic Test (Pha) 1 strip IQ4HR 05/26/25 08:00 05/27/25 09:55 1 STRIP Insulin Human Regular IQ4HR SC 05/26/25 08:00 05/27/25 09:37 6 UNITS Dextrose 50 ml UD PRN IV 05/26/25 05:30 Vasopressin 20 units/Sodium Chloride 100 ml @ 9 mls/hr Q11H7M IV 05/26/25 05:45 05/27/25 01:45 9 MLS/HR Dopamine HCl/ Dextrose 250 ml @ 14.25 mls/ hr [id number] IV 05/26/25 05:45 05/26/25 11:32 42.75 MLS/HR Epinephrine HCl 250 ml @ 7.5 mls/hr Q24H IV 05/26/25 08:30 Phenylephrine HCl 80 mg/Sodium Chloride 250 ml @ 7.5 mls/hr Q24H IV 05/26/25 08:45 05/26/25 17:46 15 MLS/HR Norepinephrine Bitartrate 32 mg/ Sodium Chloride 250 ml @ 0.938 mls/ hr Q24H IV 05/26/25 08:45 05/26/25 23:22 14.063 MLS/HR Dextrose 1,000 ml @ 100 mls/hr Q10H IV 05/26/25 10:45 05/27/25 03:15 100 MLS/HR Piperacillin Sod/ Tazobactam Sod 100 ml @ 25 mls/hr Q12H IV 05/26/25 18:00 05/27/25 06:00 25 MLS/HR Pantoprazole Sodium 40 mg BID IV 05/26/25 22:00 05/27/25 10:52 40 MG Enoxaparin Sodium 30 mg DAILY SC 05/27/25 10:00 05/27/25 10:53 30 MG Folic Acid 1 mg/ Dextrose 50.2 ml @ 200.8 mls/ hr DAILY INJ 05/27/25 10:00 05/27/25 11:06 200.8 MLS/HR Thiamine HCl 100 mg DAILY IV 05/27/25 10:00 05/27/25 10:53 100 MG Calcium Acetate 2,001 mg TID NG 05/26/25 17:15 Examination: LUNGS:Normal, CVS:Normal, MSK:Normal laboratory and microbiology Laboratory Tests 05/27/25 03:15 Test 05/27/25 03:15 Range/Units Serum Glucose 212 H 74-106 mg/dL Microbiology Date/Time Source Procedure Growth Status 05/25/25 19:43 Urine - Courtney [place] Urine Culture - Preliminary Resulted 05/25/25 18:29 Nose MRSA Screen - Final Complete 05/25/25 09:20 Sputum Gram Stain - Final Resulted 05/25/25 09:20 Sputum Respiratory Culture - Preliminary Resulted 05/25/25 09:07 Blood Blood Culture - Preliminary NO GROWTH AFTER 48 HOURS OF INCUBATION. Resulted Problem List/Assessment/Plan Problem List/Assessment/Plan Acute kidney injury superimposed Chronic Kidney Disease secondary hemodynamic mediated, IV contrast, feNa > 2% Acute respiratory failure, patient intubated on ventilator Ethylene glycol poisoning Status post Suicide attempt Septic shock Severe metabolic acidosis Hypernatremia due to dehydration Microcytic anemia Elevated AST and ALT Nephrotic range proteinuria Hyperglycemia Hypocalcemia Recommendations Continue hemodialysis with high bicarb for electrolytes abnormalities and acid- base No ultrafiltration Hemodialysis again tomorrow Patient remained anuric Courtney catheter Strict I&Os IVF D5W at 70 cc/hour Insulin sliding scale Calcium gluconate 3 g IV piggyback IV pressors for blood pressure support Patient is a max IV pressors IV antibiotics Poor prognosis Plan discussed with: Other (Nurse) My Orders My Orders Orders - HERMELINDA ADDISON MD Procedure Category Date Status Time Hemodialysis Orders ORDERS 05/27/25 Transmitted 07:00 Dialysis Nursing TAMIKO 05/27/25 In Process Message 07:00 Document Fluid Input TAMIKO 05/27/25 In Process And Outpu 07:00 Calcium Acetate PHA 05/26/25 In Process Capsule (Phoslo 17:15 D5w 5% PHA 05/27/25 Verified 11:15 Calcium Ivpb PHA 05/27/25 Verified 11:15 Hemodialysis Orders ORDERS 05/28/25 Verified 07:00 Dialysis Nursing TAMIKO 05/28/25 Verified Message 07:00 Heparin Sodium PHA 05/28/25 Verified (Porcine) 07:00 Heparin Sodium PHA 05/28/25 Verified (Porcine) 07:00 Sodium Chloride 0.9% PHA 05/28/25 Verified 07:00 Document Fluid Input TAMIKO 05/28/25 Verified And Outpu 07:00 Dietary Evaluation Review Comments: 1. TPN if NPO>7 days 2. TF glucerna@40ml/hr providing 58g protein, 1152kcal 773ml free water, meeting pt's protein needs 100%, energy need 76% 3. Reassess when pt is extubated Expected Outcomes/Goals: Gradual wt loss, avoid nephrotic syndrome HERMELINDA ADDISON MD May 27, 2025 11:18
--- NOTE | 2025-05-27 12:32 | DVHSR ---
APPROVED REPORT EXAM: Two-dimensional and M-mode echocardiogram with Doppler and color Doppler. Blood Pressure: 113/47 mmHg INDICATION HF? RISK FACTORS Height: 64, Weight: 167 DIMENSIONS LVDd4.1 (3.8-5.7cm)LA (2D)3.4 (1.9-4.0cm)Aortic Root3.1 (2.0-3.7cm) LVDs2.6 (2.5-4.0cm)LA (MM) (1.9-4.0cm)Aortic Cusp Exc1.3 (1.5-2.0cm) EF (%) 66.0 (55-70%)Rt. Atrium4.5 (1.9-4.0cm)Asc. Aorta cm IVSd1.2 (0.7-1.1cm)RV (D) (1.8-2.4cm) PWd1.0 (0.7-1.1cm) Mitral Valve MitralMitral Stenosis E/A ratio0.02D MVAcm2 DECEL TimemsPRESS 1/2 [id number] IVRTmsDop MVA4.55cm2 Aortic Valve Aortic ValveAortic Stenosis V11.27m/Figueroa Mean GR.9mmHg V21.92m/[place]a Peak GR.15mmHg LVOT Diameter1.6 (1.8-2.4cm)Doppler AVA1.33cm2 Pulmonic Valve V20.99m/s Tricuspid Valve TR Velocity2.19m/s [id number] Other Information Technically limited study due to patient on a vent. Conclusion lvef 65% normal rv functin left atrium enlarged no severev avle abnormaities noted cannot rule out pleural effusion on L side
[2025-05-27] MEDS: CALCIUM GLUC 1,000mg/50ml-NS 50 ML IV SCH (13:24)
[2025-05-27] MEDS: MAGNESIUM SULFATE 1GM/100ML 100 ML IV ONE (13:24)
[2025-05-27] MEDS: D5W 5% 1,000 ML IV SCH (14:48)
[2025-05-27] MEDS: CALCIUM GLUC 1,000mg/50ml-NS 50 ML IV ONE ×2 (14:49→17:43)
--- NOTE | 2025-05-27 15:13 | DVHINCON2 ---
Date of service: May 27, [address] Leung Reason for Consultation Possible lysol or arnica poisoning ingestion History of Present Illness Patient is a 74-year-old female with a medical history of hypertension was brought to the ER with a chief complaint of altered mental status and labored breathing. As per the family patient was apparently doing well until last night and only complained of constipation and was not eating well for the last 3-4 weeks. In the morning patient was found in the restroom altered and had labored breathing but was still responsive, there was a large bowel movement and the patient had vomited, no blood in the vomitus, was yellowish in color. Per EMS upon arrival to scene patient was found to have labored breathing with a respiratory rate from 4-15 breaths, tachycardiac with a HR of 135, and hypertensive with a blood pressure of 184/46mmHg. On arrival to the ER patient was altered and had to be intubated and put on mechanical ventilation for airway protection and respiratory distress. Patient seen in ICU intubated sedated. Patient had severe lactic acidosis and leukocytosis that is improving. There was suspicion of possible enterocolitis. Abdominal angiography showed no evidence of ischemic bowel Patient has suspected ingestion of Lysol or liquid arnica possibly as a suicide attempt but it is unclear at this time Past Medical History Past medical history: Hypertension, major depression but not on any medication with history of suicide attempt Pain syndrome Past Surgical History Past surgical history: Cholecystectomy Family History: Patient reports no known family medical history. Social History Social history: No reported alcohol, smoking, drug use and lives with the Home medications: Lisinopril 10 mg Allergies: Coded Allergies: NO KNOWN ALLERGIES (Unverified , 05/25/25) Current Medications Current Medications Medications (Trade) Dose Ordered Sig/Jeremy Route PRN Reason Start Time Stop Time Status Last Admin Piperacillin Sod/ Tazobactam Sod 100 ml @ 25 mls/hr Q12H IV 05/26/25 18:00 05/27/25 06:00 Pantoprazole Sodium (Protonix) 40 mg BID IV 05/26/25 22:00 05/27/25 10:52 Enoxaparin Sodium (Lovenox) 30 mg DAILY SC 05/27/25 10:00 05/27/25 10:53 Folic Acid 1 mg/ Dextrose 50.2 ml @ 200.8 mls/ hr DAILY INJ 05/27/25 10:00 05/27/25 11:06 Thiamine HCl 100 mg DAILY IV 05/27/25 10:00 05/27/25 10:53 Potassium Chloride 100 ml @ 50 mls/hr Q2H IV 05/26/25 17:15 05/26/25 18:04 DC Calcium Acetate (Phoslo Capsule) 2,001 mg TID NG 05/26/25 17:15 05/27/25 14:48 Dextrose 1,000 ml @ 70 mls/hr [id number] IV 05/27/25 11:15 05/27/25 14:48 Calcium Gluconate/ Sodium Chloride 50 ml @ 100 mls/hr Q30M IV 05/27/25 11:15 05/27/25 12:44 DC 05/27/25 14:48 Vital Signs Vital Signs Date Time Temp Pulse Resp B/P (MAP) Pulse Ox O2 Delivery O2 Flow Rate FiO2 05/27/25 14:27 76 26 135/59 (84) 100 30 05/27/25 08:00 Mechanical Ventilator+ 05/27/25 06:00 98.7 98.7 Physical Exam Patient examined hemodialysis, blood pressure is stable Patient intubated on ventilator Lungs clear to auscultation bilaterally Cardiac exam is tachycardic GI soft bowel sounds are present Courtney catheter Extremities no clubbing cyanosis or edema Neuro patient is a sedated Labs/Diagnostic Data Labs Test 05/27/25 13:33 05/27/25 07:43 05/27/25 03:15 05/26/25 21:25 Range/Units POC Glucose 246 H 70-106 mg/dl Blood Gas Specimen Type Arterial Blood Gas Sample Site Arterial line Blood Gas Patient Temperature 37.0 Arterial Blood Date Drawn [id number] Arterial Blood pH 7.295 L 7.350-7.450 Arterial Blood Partial Pressure CO2 27.5 L 32.0-45.0 mmHg Arterial Blood Partial Pressure O2 109.2 H 83.0-108.0 mmHg Arterial Blood HCO3 13.1 L 21.0-28.0 mmol/L Arterial Blood Oxygen Saturation 97.5 94.0-98.0 % Arterial Blood Base Excess -11.8 L -2.0-3.0 mmol/L Arterial Blood Oxyhemoglobin 97.1 94.0-98.0 % Arterial Blood Carboxyhemoglobin 0.2 L 0.5-1.5 % Arterial Blood Methemoglobin 0.2 0.0-1.5 % Epifanio Test N/a Blood Gas Total Hemoglobin 13.30 12.0-16.0 g/dL Blood Gas Set Respiration Rate 26.0 Blood Gas Modality Vent - ac FiO2 % 30.0 Blood Gas Tidal Volume 450.0 Blood Gas PEEP or CPAP 5.0 White Blood Count 25.1 #H 4.4-10.8 10^3/uL Red Blood Count 4.16 4.0-5.20 10^6/uL Hemoglobin 12.7 12.2-16.2 g/dL Hematocrit 38.1 36.0-46.0 % Mean Corpuscular Volume 91.7 # 80.0-100.0 fL Mean Corpuscular Hemoglobin 30.5 28.0-32.0 pg Mean Corpuscular Hemoglobin Concent 33.3 32.0-36.0 g/dL Red Cell Distribution Width 13.2 11.8-14.3 % Platelet Count 112 L 140-450 10^3/uL Mean Platelet Volume 11.3 H 6.9-10.8 fL Neutrophils (%) (Auto) 90.2 H 37.0-80.0 % Lymphocytes (%) (Auto) 2.8 L 10.0-50.0 % Monocytes (%) (Auto) 6.9 0.0-12.0 % Eosinophils (%) (Auto) 0.0 0.0-7.0 % Basophils (%) (Auto) 0.1 0.0-2.0 % Neutrophils # (Auto) 22.6 H 1.6-8.6 10 ^3/uL Lymphocytes # (Auto) 0.7 0.4-5.4 10 ^3/uL Monocytes # (Auto) 1.7 H 0-1.3 10 ^3/uL Eosinophils # (Auto) 0 0-0.8 10 ^3/uL Basophils # (Auto) 0 0-0.2 10 ^3/uL Nucleated Red Blood Cells 0.1 % Sodium Level 146 H 136-145 mmol/L Potassium Level 3.9 3.5-5.1 mmol/L Chloride Level 100 98-107 mmol/L Carbon Dioxide Level 13 L 20-31 mmol/L Anion Gap 33 H 5-15 Blood Urea Nitrogen 22 9-23 mg/dL Creatinine 3.43 #H 0.550-1.02 mg/dL Glomerular Filtration Rate Calc 13 >90 mL/min BUN/Creatinine Ratio 6.4 L 10.0-20.0 Serum Glucose 212 H 74-106 mg/dL Calcium Level 6.8 L 8.7-10.4 mg/dL Phosphorus Level 3.1 2.4-5.1 mg/dL Magnesium Level 1.8 1.6-2.6 mg/dL Total Bilirubin 0.5 0.2-1.0 mg/dL Aspartate Amino Transferase (AST) 129 H 13-40 U/L Alanine Aminotransferase (ALT) 40 7-40 U/L Alkaline Phosphatase 83 46-116 U/L Total Protein 5.6 L 5.7-8.2 g/dL Albumin 3.5 3.2-4.8 g/dL B-Type Natriuretic Peptide 2426.25 0-100 pg/mL Test 05/26/25 13:40 05/26/25 08:15 05/26/25 05:22 05/26/25 04:22 Range/Units Lactic Acid Level 10.7 *H 0.4-2.0 mmol/L Creatine Kinase 1030 H 34-145 U/L Lipase 511 H 12-53 U/L Iron Level 206 H 50-170 ug/dL Total Iron Binding Capacity 191 L 250-425 ug/dL Percent Iron Saturation 107.9 H 15-50 % Ferritin 318.9 H 10-291 ng/mL Ammonia 63 H 11-32 umol/L Vitamin B12 Level 2131 H 211-911 pg/mL Vitamin D 25-Hydroxy 29.4 L 30.0-100 ng/mL Hepatitis A IgM Antibody Negative Hepatitis B Surface Antigen Negative Negative Hepatitis B Core IgM Antibody Negative Negative Hepatitis C Antibody Negative Negative Urine Color Light-yellow Yellow Urine Clarity Turbid H Clear Urine pH 6.5 5.0-9.0 Urine Specific [place] 1.011 1.001-1.035 Urine Protein Trace H Negative Urine Ketones Negative Negative Urine Blood 2+ H Negative /uL Urine Nitrite 2+ H Negative Urine Bilirubin Negative Negative Urine Urobilinogen Normal Negative mg/dL Urine Leukocyte Esterase 3+ Negative /uL Urine RBC 32 0 - 4 /hpf Urine Microscopic WBC 104 H 0-5 /HPF Urine Squamous Epithelial Cells None seen <5 /hpf Urine Bacteria Few H None Seen /hpf Urine Granular Casts Few 0 /lpf Urine Yeast (Budding) Moderate None Seen /hpf Urine Creatinine 70.72 30.0-125.0 mg/dL Urine Sodium 58 40-220 mmol/L Urine Glucose Normal Normal mg/dL Urine Opiates Screen Neg NEGATIVE Urine Fentanyl Screen Neg NEGATIVE Urine Barbiturates Screen Neg NEGATIVE Urine Phencyclidine Screen Neg NEGATIVE Urine Amphetamines Screen Neg NEGATIVE Urine Benzodiazepines Screen Neg NEGATIVE Urine Cocaine Screen Neg NEGATIVE Urine Cannabinoids Screen Neg NEGATIVE Blood Gas Critical Value Read Back Yes Blood Gas Notified Whom roula Weeks md Blood Gas Notified Time [id number] Blood Gas Notified By supa Walters, shirt finisher Test 05/26/25 01:44 05/25/25 19:43 05/25/25 19:33 05/25/25 12:46 Range/Units Differential Total Cells Counted 100.0 100 Neutrophils % (Manual) 78 37.0-80.0 Band Neutrophils % (Manual) 2 Lymphocytes % (Manual) 12 10.0-50.0 Monocytes % (Manual) 6 0-12 Eosinophils % (Manual) 0 0-7 Basophils % (Manual) 0 0.0-2.0 Metamyelocytes % (manual) 1 Myelocytes % (Manual) 0 Promyelocytes % (Manual) 0 Blast Cells % (Manual) 0 Reactive Lymphocytes 1 Smudge Cells 3 /100 WBC Platelet Estimate Adequate Prothrombin Time 12.9 H 9.3-11.8 sec Prothrombin Time INR 1.24 H 0.9-1.15 Activated Partial Thromboplast Time 45.3 H 24.5-34.5 SEC Serum Osmolality 379 H 278-298 mOsm/kg Thyroid Stimulating Hormone (TSH) 3.71 0.55-4.78 uIU/mL Random Vancomycin Level 15.3 H 5-10 ug/mL Plasma/Serum Blood Alcohol < 3.0 <10 mg/dL Urine Osmolality 528 mOsm/kg Urine Protein/Creatinine Ratio 3.76 Urine Total Protein 101.7 H 1-14 mg/dL Macrocytosis Moderate Hemoglobin A1c 5.1 <5.7 % A1C Lactate Dehydrogenase 502 H 120-246 U/L Beta-Hydroxybutyric Acid 0.264 < 0.4 mmol/L Troponin I High Sensitivity 14 </=34 ng/L Test 05/25/25 10:23 05/25/25 09:07 Range/Units Urine Uric Acid Crystals Few None Seen /hpf Hypochromasia (manual) Moderate Salicylates Level < 3.0 -30 mg/dL Acetaminophen Level < 2.0 L 10.0-20.0 UG/ML Microbiology Date/Time Source Procedure Growth Status 05/25/25 19:43 Urine - [place] Urine Culture - Preliminary Resulted 05/25/25 18:29 Nose MRSA Screen - Final Complete 05/25/25 09:20 Sputum Gram Stain - Final Resulted 05/25/25 09:20 Sputum Respiratory Culture - Preliminary Resulted 05/25/25 09:07 Blood Blood Culture - Preliminary NO GROWTH AFTER 48 HOURS OF INCUBATION. Resulted Abdominal angiography IMPRESSION: 1. No acute GI hemorrhage identified. 2. No evidence of acute mesenteric ischemia. 3. Concentric wall thickening is seen in multiple loops of small bowel and colon suggestive of infectious / inflammatory enterocolitis. Problems(with codes): (1) Enterocolitis (2) Leukocytosis (3) Lactic acidosis (4) Acute renal failure (5) Ethylene glycol poisoning (6) Acute respiratory failure (7) Metabolic encephalopathy Plan/Recommendation Plan Continue supportive care NG tube to low intermittent suction However NG tube can be used to give free water and medications IV Clinimix at be 2 mL/hour Continue broad-spectrum antibiotics Continue monitoring labs Supportive care; IV ppi Once the patient's clinical status improves we can try trickle enteral tube feedings Plan discussed with: Other (ICU Nurse) MAXIMINO DANIEL MD May 27, 2025 15:13
--- NOTE | 2025-05-27 19:17 | DVHPNRES ---
Progress Note Date Seen: May 27, 2025 Resident Creating Document: LUANN CHATTERJEE RESDIENT Medical Necessity Reason Pt with a Central, PICC or Fol: Yes Subjective Review of Systems Patient is a 74-year-old female with a medical history of depression hypertension, and constipation was brought in by EMS yesterday morning (05/25) from home with a chief complaint of altered mental status and labored breathing. Per patient's , As per the family patient was apparently doing well until last night and only complained of constipation and was not eating well for the last 3-4 weeks. In the morning patient was found in the restroom altered and had labored breathing but was still responsive, there was a large bowel movement and the patient had vomited, no blood in the vomitus, was yellowish in color. Per EMS upon arrival to scene patient was found to have labored breathing with a respiratory rate from 4-15 breaths, tachycardiac with a HR of 135, and hypertensive with a blood pressure of 184/46mmHg. On arrival to the ER patient was altered and had to be intubated and put on mechanical ventilation for airway protection and respiratory distress. Past medical history: Hypertension, major depression but not on any medication Past surgical history: Cholecystectomy and bladder prolapse surgery Social history: No reported alcohol, smoking, drug use and lives with the , at baseline mobile and does not use any walker/wheelchair Home medications: Lisinopril 10 mg, senna and antiacid Patient seen and examined at the bedside. Patient is sedated and on mechanical ventilation. Objective vital signs Vital Sign Date Time Temp Pulse Resp B/P (MAP) Pulse Ox O2 Delivery O2 Flow Rate FiO2 05/27/25 18:52 81 26 137/64 (88) 100 30 05/27/25 18:52 Mechanical Ventilator+ 05/27/25 16:00 98.4 98.4 Total Intake and Output 05/26/25 05/26/25 05/27/25 15:00 23:00 07:00 Intake Total 1975.040 ml 1041.069 ml 1407.818 ml Output Total 310 ml 150 ml Balance 1975.040 ml 731.069 ml 1257.818 ml medications Current Medications Medications Dose Ordered Sig/Jeremy Route Start Time Stop Time Status Last Admin Dose Admin Propofol 100 ml @ 2.409 mls/ hr Q24H IV 05/25/25 09:30 10/6/25 05:15 14.454 MLS/HR Midazolam HCl 50 ml @ 1 mls/hr Q24H IV 05/25/25 14:45 05/27/25 15:35 13 MLS/HR Fentanyl Citrate 250 ml @ 2.5 mls/hr Q24H IV 05/25/25 20:00 05/27/25 15:36 15 MLS/HR Purified Water 250 ml Q4HR GT 05/26/25 06:00 05/27/25 17:54 250 ML Diagnostic Test (Pha) 1 strip IQ4HR 05/26/25 08:00 05/27/25 17:54 1 STRIP Insulin Human Regular IQ4HR SC 05/26/25 08:00 05/27/25 18:07 3 UNITS Dextrose 50 ml UD PRN IV 05/26/25 05:30 Vasopressin 20 units/Sodium Chloride 100 ml @ 9 mls/hr Q11H7M IV 05/26/25 05:45 05/27/25 13:47 9 MLS/HR Dopamine HCl/ Dextrose 250 ml @ 14.25 mls/ hr [id number] IV 05/26/25 05:45 05/26/25 11:32 42.75 MLS/HR Epinephrine HCl 250 ml @ 7.5 mls/hr Q24H IV 05/26/25 08:30 Phenylephrine HCl 80 mg/Sodium Chloride 250 ml @ 7.5 mls/hr Q24H IV 05/26/25 08:45 05/26/25 17:46 15 MLS/HR Norepinephrine Bitartrate 32 mg/ Sodium Chloride 250 ml @ 0.938 mls/ hr Q24H IV 05/26/25 08:45 05/26/25 23:22 14.063 MLS/HR Piperacillin Sod/ Tazobactam Sod 100 ml @ 25 mls/hr Q12H IV 05/26/25 18:00 05/27/25 06:00 25 MLS/HR Pantoprazole Sodium 40 mg BID IV 05/26/25 22:00 05/27/25 10:52 40 MG Enoxaparin Sodium 30 mg DAILY SC 05/27/25 10:00 05/27/25 10:53 30 MG Folic Acid 1 mg/ Dextrose 50.2 ml @ 200.8 mls/ hr DAILY INJ 05/27/25 10:00 05/27/25 11:06 200.8 MLS/HR Thiamine HCl 100 mg DAILY IV 05/27/25 10:00 05/27/25 10:53 100 MG Calcium Acetate 2,001 mg TID NG 05/26/25 17:15 05/27/25 14:48 2,001 MG Dextrose 1,000 ml @ 70 mls/hr [id number] IV 05/27/25 11:15 05/27/25 14:48 70 MLS/HR Examination General: RASS -4, afebrile, mucosae are moist Cardiovascular: Irregular S1 and S2. No murmurs, gallops or rubs Respiratory: Mechanically assisted ventilation, equal bilateral airway entree. Clear lung sounds on auscultation Mechanical ventilation setting: VT 450, RR 26, FiO2 35% and peep 5 GI: Soft, nontender, no organomegaly, decreased bowel sounds, NG tube placed with scant amount of greenish discharge : Courtney catheter n place, no urine output, clear yellow urine in collection bag MSK/skin: Mobilization of limbs cannot be evaluated. Skin is dry and warm. IV accesses: Right IJ Delmer catheter, left IJ central line, right side radial A- line, and right peripheral line Neurological: Orientation cannot be assessed. No apparent motor no sensitive deficits. Bilateral pupils mid dilated, sluggish reaction laboratory and microbiology Laboratory Tests 05/27/25 03:15 Test 05/27/25 03:15 Range/Units Serum Glucose 212 H 74-106 mg/dL Microbiology Date/Time Source Procedure Growth Status 05/25/25 19:43 Urine - [place] Urine Culture - Preliminary Resulted 05/25/25 18:29 Nose MRSA Screen - Final Complete 05/25/25 09:20 Sputum Gram Stain - Final Resulted 05/25/25 09:20 Sputum Respiratory Culture - Preliminary Resulted 05/25/25 09:07 Blood Blood Culture - Preliminary NO GROWTH AFTER 48 HOURS OF INCUBATION. Resulted Labs and/or images reviewed: Labs reviewed by me, Image(s) reviewed by me Problem List/Assessment/Plan Problem List/Assessment/Plan This is a 74-year-old female with past medical history of hypertension and depression brought in by EMS due to altered mental status and labored breaths. She was admitted and intubated on 05/25. NEURO: Acute toxic/metabolic encephalopathy, likely due to possible lysol ingestion/metabolic acidosis/sepsis Suicidal attempt, possibly due to antifreeze * Head CT scan 05/25 shows no significant intracranial abnormality * RASS score -4 * Plan: Versed and fentanyl CARDIOVASCULAR: Possible septic/distributive shock New onset atrial fibrillation with RVR Acquired hypercoagulability History of Hypertension * EKGs 05/25, AFib with RVR with no significant ST or T-wave changes * Plan: Continue Levophed, vasopressin RESPIRATORY: Acute hypoxic respiratory failure, likely due to metabolic encephalopathy * Chest x-ray shows pulmonary vascular congestion * Plan: Mechanical ventilation and IV antibiotic GENITOURINARY/FLUID: PAPO, likely VMN * Hemodialysis performed on 05/26, 05/27 * Plan: urine microscopy GASTROINTESTINAL/NUTRITION: Possible Antifreeze intoxication * Ammonia raised at 354>>63 * Plan: Protonix 40 b.i.d INFECTIOUS DISEASE: Septic shock, due to sepsis Sepsis, likely due to UTI Complicated UTI * UA 05/26 shows turbid urine, blood +2, nitrite +2, leukocyte esterase +3, RBC 32 and WBC 104 * linezolid (05/25 stopped on 05/27) * Plan: Panculture, IV antibiotic Zosyn (05/25) HEMATOLOGY: * DVT prophylaxis: Lovenox ENDOCRINE: Severe Metabolic acidosis with raised anion gap and osmolar gap, possibly due to antifreeze ingestion * 18 ampules of Bicarbonate given * Plan: HD performed on 05/26 METABOLIC: Hyperphosphatemia Hypernatremia, possibly due to bicarbonate * Volume deficits: 5.4L * Plan: D5W at 70 mL/hour MSK/SKIN: * There is a small abrasion with superficial crusted blood on right lower limb DIET: NPO DVT prophylax: Lovenox GI prophylaxis: Protonix Bowel regimen: LINES/DEVICES ETT: Intubated on 05/25 IV access: Right IJ Delmer catheter (05/25), left IJ central line (05/25), right radial A-line (05/26) Drips: Levophed, dopamine, Versed and fentanyl Courtney catheter: Placed on 05/25 Disposition: Continue ICU status Family: Patients , son and daughter updated at the bedside. Critical care time: Spent >83 min, spent in direct critical care, including evaluation, management, review of labs/imaging, and multidisciplinary/family discussions, (excluding any procedures). Case discussed with Dr. Alva Plan discussed with: Patient, Other My Orders My Orders Orders - LUANN CHATTERJEE RESDIJOSSELYN Procedure Category Date Status Time Ng To Lis TAMIKO 05/26/25 In Process 08:00 Communication Order ORDERS 05/26/25 Transmitted 20:01 Chest Xray 1 View XY 05/27/25 Resulted 04:00 Abg W/ Co-Ox RT 05/27/25 Logged 04:00 Urine Microscopic LAB 05/26/25 Logged 20:58 * Machine Stonecutter CONS 05/27/25 Transmitted Consult Dietary Evaluation Review Comments: 1. TPN if NPO>7 days 2. TF glucerna@40ml/hr providing 58g protein, 1152kcal 773ml free water, meeting pt's protein needs 100%, energy need 76% 3. Reassess when pt is extubated Expected Outcomes/Goals: Gradual wt loss, avoid nephrotic syndrome Date of Service: May 27, 2025 Billing Provider: ANTHONY AVLA MD Common Visit Codes: 19197-FGKGHGPI CARE 30-74 MIN, 50900-OZKSIZUB CARE-EACH +30MIN LUANN CHATTERJEE RESDIENT May 27, 2025 19:16 ANTHONY ALVA MD May 28, 2025 14:42
[2025-05-27] MEDS ORDERED: DEXTROSE (50%) 50ML SYRG IV PRN (20:00)
[2025-05-28] VITALS (94 sets, daily range): BP systolic 67–151; BP diastolic 41–142; PULSE 30–123; RESP 0–31; TEMP 97.2–97.5; O2SAT 9–100
[2025-05-28] MEDS: InsuLIN REG 1unit/0.01ml Soln (100units/ml) SC SCH
[2025-05-28] MEDS: ACCU-CHEK COMFORT CURVE STRIP VI SCH (00:03)
[2025-05-28 04:27] LABS: Hematocrit 33.6 % (36.0-46.0); Hemoglobin 11.7 g/dL (12.2-16.2); Mean Corpuscular Hemoglobin 30.9 pg (28.0-32.0); Mean Corpuscular Volume 88.8 fL (80.0-100.0); Nucleated Red Blood Cells % 0.1 %
[2025-05-28 04:40] LABS: Sodium 142 mmol/L (136-145)
[2025-05-28 04:49] LABS: Alkaline Phosphatase 81 U/L (46-116)
[2025-05-28 04:51] LABS: BUN/Creatinine Ratio 6.4 (10.0-20.0); Blood Urea Nitrogen 20 mg/dL (9-23)
[2025-05-28 04:52] LABS: Alanine Aminotransferase 33 U/L (7-40); Magnesium 1.8 mg/dL (1.6-2.6)
[2025-05-28 04:53] LABS: Bilirubin, Total 0.9 mg/dL (0.2-1.0)
[2025-05-28 04:54] LABS: Chloride 97 mmol/L (98-107); Potassium 3.4 mmol/L (3.5-5.1)
[2025-05-28 04:55] LABS: Albumin 3.1 g/dL (3.2-4.8); Calcium 7.7 mg/dL (8.7-10.4); Glucose 143 mg/dL (74-106); Total Protein 5.1 g/dL (5.7-8.2)
[2025-05-28 04:56] LABS: Lactic Acid w/Reflex 6.8 mmol/L (0.4-2.0)
[2025-05-28 05:18] LABS: Anion Gap 20 (5-15); Carbon Dioxide 25 mmol/L (20-31)
--- NOTE | 2025-05-28 05:23 | DVH ---
CHEST RADIOGRAPH Indication: Pneumonia Technique: Single frontal view of the chest was obtained COMPARISON: XY CHEST XRAY 1 VIEW on DOS: 05/27/25, XY CHEST XRAY 1 VIEW on DOS: 05/26/25, XY CHEST PORT ABLE on DOS: 05/26/25, XY CHEST XRAY 1 VIEW on DOS: 05/25/25, XY CHEST PORTABLE on DOS: 05/25/25 FINDINGS: Lines and Tubes: Endotracheal tube, enteric catheter, left central venous catheter, and right central venous catheter in satisfactory position. Lungs: Cardiomegaly. Pulmonary vascular congestion. Pleura: Small left pleural effusion. No pneumothorax. Cardiomediastinal contours: cardiomegaly Bones: Unremarkable. IMPRESSION: Lines and tubes in satisfactory position. No significant interval change.
[2025-05-28 06:26] LABS: Base Excess 3.7 mmol/L (-2.0-3.0)
[2025-05-28] MEDS ORDERED: SODIUM CHL 0.9% 1000 ML BAG XX ONE (07:00)
[2025-05-28] MEDS: MAGNESIUM SULFATE 1GM/100ML 100 ML IV ONE (10:12)
[2025-05-28] MEDS: POTASSIUM CHL 20MEQ/100ML 100 ML IV ONE (10:13)
--- NOTE | 2025-05-28 11:05 | ECG ---
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
--- NOTE | 2025-05-28 11:05 | ECG ---
[facility] Test Date: 2025-05-27 Test Time: 12:49:04 Pat Name: YOLIS BAUER Department: ICU Room: [address] [place] [address] A Gender: F Barman: [employer] : 1950 Requested By: LUANN CHATTERJEE Order Number: [id number] Reading MD: Measurements Intervals [place] Rate: 125 P: 0 MS: 0 QRS: -50 QRSD: 104 T: 129 QT: 436 QTc: 629 Interpretive Statements Atrial fibrillation Incomplete RBBB and LAFB Low voltage, precordial leads Abnormal R-wave progression, early transition Probable LVH with secondary repol abnrm Prolonged QT interval Baseline wander in lead(s) V6 Please click the below link to view image of tracing.
--- NOTE | 2025-05-28 11:20 | ECG ---
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
--- NOTE | 2025-05-28 11:23 | DVHPN2 ---
Progress Note Date Seen: May 28, 2025 Medical Necessity Reason Pt with a Central, PICC or Fol: Yes Subjective Review of Systems: RESPIRATORY:Abnormal Other Systems: Patient seen and examined by myself today in follow-up, patient remained intubated on ventilator Patient examined hemodialysis, blood pressure stable Objective vital signs Vital Sign Date Time Temp Pulse Resp B/P (MAP) Pulse Ox O2 Delivery O2 Flow Rate FiO2 05/28/25 10:21 106/69 05/28/25 10:04 102 24 100 30 05/28/25 07:44 Mechanical Ventilator+ 05/27/25 23:45 98.4 98.4 Total Intake and Output 05/27/25 05/27/25 05/28/25 15:00 23:00 07:00 Intake Total 1556.282 ml 1327.688 ml 745.938 ml Output Total 130 ml 120 ml Balance 1556.282 ml 1197.688 ml 625.938 ml medications Current Medications Medications Dose Ordered Sig/Jeremy Route Start Time Stop Time Status Last Admin Dose Admin Propofol 100 ml @ 2.409 mls/ hr Q24H IV 05/25/25 09:30 05/26/25 05:15 14.454 MLS/HR Midazolam HCl 50 ml @ 1 mls/hr Q24H IV 05/25/25 14:45 05/28/25 10:21 7 MLS/HR Fentanyl Citrate 250 ml @ 2.5 mls/hr Q24H IV 05/25/25 20:00 05/28/25 06:35 15 MLS/HR Vasopressin 20 units/Sodium Chloride 100 ml @ 9 mls/hr Q11H7M IV 05/26/25 05:45 05/27/25 13:47 9 MLS/HR Epinephrine HCl 250 ml @ 7.5 mls/hr Q24H IV 05/26/25 08:30 Norepinephrine Bitartrate 32 mg/ Sodium Chloride 250 ml @ 0.938 mls/ hr Q24H IV 05/26/25 08:45 05/27/25 21:41 6.563 MLS/HR Piperacillin Sod/ Tazobactam Sod 100 ml @ 25 mls/hr Q12H IV 05/26/25 18:00 05/28/25 06:21 25 MLS/HR Pantoprazole Sodium 40 mg BID IV 05/26/25 22:00 05/27/25 20:55 40 MG Enoxaparin Sodium 30 mg DAILY SC 05/27/25 10:00 05/27/25 10:53 30 MG Folic Acid 1 mg/ Dextrose 50.2 ml @ 200.8 mls/ hr DAILY INJ 05/27/25 10:00 05/27/25 11:06 200.8 MLS/HR Thiamine HCl 100 mg DAILY IV 05/27/25 10:00 05/27/25 10:53 100 MG Dextrose 1,000 ml @ 70 mls/hr [id number] IV 05/27/25 11:15 05/28/25 08:36 70 MLS/HR Diagnostic Test (Pha) 1 strip Q6HR 05/28/25 00:00 05/28/25 06:21 1 STRIP Insulin Human Regular Q6HR SC 05/28/25 00:00 05/28/25 06:27 2 UNITS Dextrose 50 ml UD PRN IV 05/27/25 20:00 Examination: LUNGS:Normal, CVS:Normal, MSK:Normal laboratory and microbiology Laboratory Tests 05/28/25 03:30 Test 05/28/25 03:30 Range/Units Serum Glucose 143 H 74-106 mg/dL Microbiology Date/Time Source Procedure Growth Status 05/25/25 19:43 Urine - [place] Urine Culture - Preliminary Resulted 05/25/25 18:29 Nose MRSA Screen - Final Complete 05/25/25 09:20 Sputum Gram Stain - Final Complete 05/25/25 09:20 Sputum Respiratory Culture - Final Complete 05/25/25 09:07 Blood Blood Culture - Preliminary NO GROWTH AFTER 72 HOURS OF INCUBATION. Resulted Problem List/Assessment/Plan Problem List/Assessment/Plan Acute kidney injury superimposed Chronic Kidney Disease secondary hemodynamic mediated, IV contrast, feNa > 2% Acute respiratory failure, patient intubated on ventilator Ethylene glycol poisoning Status post Suicide attempt Septic shock Severe metabolic acidosis Hypernatremia due to dehydration Microcytic anemia Elevated AST and ALT Nephrotic range proteinuria Hyperglycemia Hypocalcemia Respiratory alkalosis Recommendations Continue hemodialysis with high bicarb for electrolytes abnormalities and acid- base No ultrafiltration Hemodialysis again tomorrow Patient remained anuric Courtney catheter Strict I&Os IVF D5W at 70 cc/hour Insulin sliding scale Decrease minute ventilation, vent adjust Calcium gluconate 3 g IV piggyback IV pressors for blood pressure support Patient is a max IV pressors IV antibiotics Poor prognosis Total care time 35 minutes Plan discussed with: Other (Nurse) My Orders My Orders Orders - HERMELINDA ADDISON MD Procedure Category Date Status Time Communication Order ORDERS 05/27/25 Transmitted 20:12 Dietary Evaluation Review Comments: 1. TPN if NPO>7 days 2. TF glucerna@40ml/hr providing 58g protein, 1152kcal 773ml free water, meeting pt's protein needs 100%, energy need 76% 3. Reassess when pt is extubated Expected Outcomes/Goals: Gradual wt loss, avoid nephrotic syndrome HERMELINDA ADDISON MD May 28, 2025 11:23
[2025-05-28 13:35] LABS: Base Excess 2.1 mmol/L (-2.0-3.0)
[2025-05-28] MEDS ORDERED: ONDANSETRON HCL 4 MG/2 ML VIAL IV PRN (17:00)
[2025-05-28] MEDS ORDERED: LORazepam 2MG/ML-1ML VIAL IV PRN (17:00)
[2025-05-28] MEDS: MORPHINE SULFATE 4 MG/ML SYR/VIAL IV PRN (18:36)
--- NOTE | 2025-05-28 19:35 | DVHDSRES ---
Discharge Summary Date of Admission Resident Creating Document: LUANN LEUNG RESDIENT May 25, 2025 at 14:37 Date of Discharge: May 28, 2025 Labs/Diagnostic Data: Laboratory Results Test 05/28/25 13:28 05/28/25 12:19 05/28/25 09:07 05/28/25 06:15 Blood Gas Specimen Type Arterial Blood Gas Sample Site Left brachial Blood Gas Patient Temperature 37.0 Arterial Blood Date Drawn [id number] Arterial Blood pH 7.400 (7.350-7.450) Arterial Blood Partial Pressure CO2 45.1 mmHg (32.0-45.0) Arterial Blood Partial Pressure O2 90.8 mmHg (83.0-108.0) Arterial Blood HCO3 27.3 mmol/L (21.0-28.0) Arterial Blood Oxygen Saturation 96.2 % (94.0-98.0) Arterial Blood Base Excess 2.1 mmol/L (-2.0-3.0) Arterial Blood Oxyhemoglobin 95.8 % (94.0-98.0) Arterial Blood Carboxyhemoglobin 0.1 % (0.5-1.5) Arterial Blood Methemoglobin 0.3 % (0.0-1.5) Epifanio Test Modified Blood Gas Total Hemoglobin 11.70 g/dL (12.0-16.0) Blood Gas Set Respiration Rate 16.0 Blood Gas Modality Vent - ac FiO2 % 30.0 Blood Gas Tidal Volume 400.0 Blood Gas PEEP or CPAP 5.0 POC Glucose 124 mg/dl (70-106) Lactic Acid Level 5.6 mmol/L (0.4-2.0) Blood Gas Critical Value Read Back Yes Blood Gas Notified Whom koko Chavarria Blood Gas Notified Time [id number] Blood Gas Notified By carolin Soriano Test 05/28/25 03:30 05/26/25 21:25 05/26/25 13:40 05/26/25 08:15 White Blood Count 18.1 10^3/uL (4.4-10.8) Red Blood Count 3.79 10^6/uL (4.0-5.20) Hemoglobin 11.7 g/dL (12.2-16.2) Hematocrit 33.6 % (36.0-46.0) Mean Corpuscular Volume 88.8 fL (80.0-100.0) Mean Corpuscular Hemoglobin 30.9 pg (28.0-32.0) Mean Corpuscular Hemoglobin Concent 34.8 g/dL (32.0-36.0) Red Cell Distribution Width 13.8 % (11.8-14.3) Platelet Count 78 10^3/uL (140-450) Mean Platelet Volume 11.5 fL (6.9-10.8) Neutrophils (%) (Auto) 89.6 % (37.0-80.0) Lymphocytes (%) (Auto) 3.7 % (10.0-50.0) Monocytes (%) (Auto) 6.6 % (0.0-12.0) Eosinophils (%) (Auto) 0.0 % (0.0-7.0) Basophils (%) (Auto) 0.1 % (0.0-2.0) Neutrophils # (Auto) 16.2 10 ^3/uL (1.6-8.6) Lymphocytes # (Auto) 0.7 10 ^3/uL (0.4-5.4) Monocytes # (Auto) 1.2 10 ^3/uL (0-1.3) Eosinophils # (Auto) 0 10 ^3/uL (0-0.8) Basophils # (Auto) 0 10 ^3/uL (0-0.2) Nucleated Red Blood Cells 0.1 % Sodium Level 142 mmol/L (136-145) Potassium Level 3.4 mmol/L (3.5-5.1) Chloride Level 97 mmol/L (98-107) Carbon Dioxide Level 25 mmol/L (20-31) Anion Gap 20 (5-15) Blood Urea Nitrogen 20 mg/dL (9-23) Creatinine 3.11 mg/dL (0.550-1.02) Glomerular Filtration Rate Calc 15 mL/min (>90) BUN/Creatinine Ratio 6.4 (10.0-20.0) Serum Glucose 143 mg/dL (74-106) Serum Osmolality 297 mOsm/kg (278-298) Calcium Level 7.7 mg/dL (8.7-10.4) Phosphorus Level 3.0 mg/dL (2.4-5.1) Magnesium Level 1.8 mg/dL (1.6-2.6) Total Bilirubin 0.9 mg/dL (0.2-1.0) Aspartate Amino Transferase (AST) 72 U/L (13-40) Alanine Aminotransferase (ALT) 33 U/L (7-40) Alkaline Phosphatase 81 U/L (46-116) Total Protein 5.1 g/dL (5.7-8.2) Albumin 3.1 g/dL (3.2-4.8) B-Type Natriuretic Peptide 2426.25 pg/mL (0-100) Creatine Kinase 1030 U/L (34-145) Lipase 511 U/L (12-53) Iron Level 206 ug/dL (50-170) Total Iron Binding Capacity 191 ug/dL (250-425) Percent Iron Saturation 107.9 % (15-50) Ferritin 318.9 ng/mL (10-291) Ammonia 63 umol/L (11-32) Vitamin B12 Level 2131 pg/mL (211-911) Vitamin D 25-Hydroxy 29.4 ng/mL (30.0-100) Hepatitis A IgM Antibody Negative Hepatitis B Surface Antigen Negative (Negative) Hepatitis B Core IgM Antibody Negative (Negative) Hepatitis C Antibody Negative (Negative) Test 05/26/25 05:22 05/26/25 01:44 05/25/25 19:43 05/25/25 19:33 Urine Color Light-yellow (Yellow) Urine Clarity Turbid (Clear) Urine pH 6.5 (5.0-9.0) Urine Specific [place] 1.011 (1.001-1.035) Urine Protein Trace (Negative) Urine Ketones Negative (Negative) Urine Blood 2+ /uL (Negative) Urine Nitrite 2+ (Negative) Urine Bilirubin Negative (Negative) Urine Urobilinogen Normal mg/dL (Negative) Urine Leukocyte Esterase 3+ /uL (Negative) Urine RBC 32 /hpf (0 - 4) Urine Microscopic WBC 104 /HPF (0-5) Urine Squamous Epithelial Cells None seen /hpf (<5) Urine Bacteria Few /hpf (None Seen) Urine Granular Casts Few /lpf (0) Urine Yeast (Budding) Moderate /hpf (None Seen) Urine Creatinine 70.72 mg/dL (30.0-125.0) Urine Sodium 58 mmol/L (40-220) Urine Glucose Normal mg/dL (Normal) Urine Opiates Screen Neg (NEGATIVE) Urine Fentanyl Screen Neg (NEGATIVE) Urine Barbiturates Screen Neg (NEGATIVE) Urine Phencyclidine Screen Neg (NEGATIVE) Urine Amphetamines Screen Neg (NEGATIVE) Urine Benzodiazepines Screen Neg (NEGATIVE) Urine Cocaine Screen Neg (NEGATIVE) Urine Cannabinoids Screen Neg (NEGATIVE) Differential Total Cells Counted 100.0 (100) Neutrophils % (Manual) 78 (37.0-80.0) Band Neutrophils % (Manual) 2 Lymphocytes % (Manual) 12 (10.0-50.0) Monocytes % (Manual) 6 (0-12) Eosinophils % (Manual) 0 (0-7) Basophils % (Manual) 0 (0.0-2.0) Metamyelocytes % (manual) 1 Myelocytes % (Manual) 0 Promyelocytes % (Manual) 0 Blast Cells % (Manual) 0 Reactive Lymphocytes 1 Smudge Cells 3 /100 WBC Platelet Estimate Adequate Prothrombin Time 12.9 sec (9.3-11.8) Prothrombin Time INR 1.24 (0.9-1.15) Activated Partial Thromboplast Time 45.3 SEC (24.5-34.5) Thyroid Stimulating Hormone (TSH) 3.71 uIU/mL (0.55-4.78) Random Vancomycin Level 15.3 ug/mL (5-10) Plasma/Serum Blood Alcohol < 3.0 mg/dL (<10) Urine Osmolality 528 mOsm/kg Urine Protein/Creatinine Ratio 3.76 Urine Total Protein 101.7 mg/dL (1-14) Macrocytosis Moderate Hemoglobin A1c 5.1 % A1C (<5.7) Lactate Dehydrogenase 502 U/L (120-246) Beta-Hydroxybutyric Acid 0.264 mmol/L (< 0.4) Test 05/25/25 12:46 05/25/25 10:23 05/25/25 09:07 Troponin I High Sensitivity 14 ng/L (</=34) Urine Uric Acid Crystals Few /hpf (None Seen) Hypochromasia (manual) Moderate Salicylates Level < 3.0 mg/dL (-30) Acetaminophen Level < 2.0 UG/ML (10.0-20.0) Other Laboratory Tests 05/28/25 03:30 Brief Hx & Hospital Course: HISTORY OF PRESENTING ILLNESS: 74-year-old female with past medical history of hypertension and depression presented via EMS with altered mental status and labored breathing. Per family, she had been constipated and eating poorly for 34 weeks. Found in the restroom with altered mentation, vomiting (non-bloody, yellow), and large bowel movement. HOSPITAL COURSE: On arrival to the ED, the patient was tachycardic (HR 135), hypertensive (BP 184/46 mmHg), and had variable respiratory rate (415 breaths/min). She was intubated and placed on mechanical ventilation for airway protection and respiratory distress. Initial workup revealed acute toxic/metabolic encephalopathy, likely secondary to possible antifreeze ingestion, metabolic acidosis, and sepsis. There was concern for suicidal attempt, possibly via antifreeze ingestion. EKGs showed the AFib with RVR (the patient was given prophylactic dose of anticoagulant). ABGs showed severe metabolic acidosis, the patient was given 20 ampule of bicarbonate in span of 3 day admission, required vasopressor (Levophed, vasopressin, phenylephrine and dopamine), given empiric antibiotic of Zosyn and Zyvox, IV fluid (NS 4.5 L within 1st 24 hours) and subsequently due to PAPO/anuria, underwent hemodialysis. Abdominal CT scan, showed concentric wall thickening is seen in multiple loops of small bowel and colon suggestive of infectious / inflammatory enterocolitis, otherwise no significant finding, and head CT scan showed no significant intracranial abnormalities. Urinalysis showed UTI picture. On 2nd day of admission, patient's CBC and metabolic profile got better, cardiovascular osorio patient required to pressor, and respiratory osorio patient needs less respiratory support but still the patient had anuria, and underwent 2nd session of dialysis. Panculture, showed no growth. On 3rd day of admission (05/28), patient showed more improvement, required single pressor, due to respiratory status improvement, required minimal ventilator support, but the patient still was anuric and the patient's overall condition remained critical. On 05/28/2025, a multidisciplinary discussion was held with the family ( and daughter) regarding the patients prognosis. Although there was some laboratory and clinical improvement, the patient remained ventilator-dependent and required dialysis. The family expressed the patients wishes not to remain on life support and requested transition to comfort care. After thorough discussion with the care team, including Dr. Calderon, primary nurse, and residents Dr. Leung and Dr. Rodriguez, the decision was made to proceed with terminal extubation in the code status changed to DNR. At 18:30 on 05/28/2025, the patient was terminally weaned, extubated, placed on nasal cannula, and all life-sustaining treatments (vasopressors, antibiotics) were discontinued. She was administered morphine and Ativan for comfort. Gradualy the patients blood pressure and heart rate declined, brainstem reflexes were absent, including fixed and dilated pupils, absent corneal and gag reflexes, and no carotid pulse or heart sounds on auscultation, security monitor was showing asystole (straight line) and pronounced at 20:10 on 05/28/2025. Advanced care planning and goal of care discussion, including terminal weanin min FINAL DIAGNOSIS: at hospital Acute toxic/metabolic encephalopathy, likely due to possible antifreeze ingestion/metabolic acidosis/sepsis Suicidal attempt, possibly antifreeze ingestion Possible septic/distributive shock due to severe metabolic acidosis/sepsis New onset atrial fibrillation with RVR Acquired hypercoagulability History of Hypertension Acute hypoxic respiratory failure, likely due to metabolic/toxic encephalopathy PAPO, likely VMN, hemodialysis performed on 05/26, 05/27 Possible Antifreeze intoxication Sepsis, likely due to UTI Complicated UTI Severe Metabolic acidosis with raised anion gap and osmolar gap, possibly due to antifreeze ingestion Hyperphosphatemia Hypernatremia, possibly due to bicarbonate Condition at Discharge: Unstable () Final Diagnosis/Problems List . Discharge Disposition: at Hospital Discharge Statement: "Patient was advised to return to the ER or call 911 if any headaches, dizziness, shortness of breath, chest pain, abdominal pain, bleeding, fevers, or worsening of medical condition. Patient was counseled about treatment plan, medications, possible side effects, patientverbalized understanding. All questions were answered to the best of my ability. This discharge took greater then 30 minutes in planning, reviewing documentation, counseling the patient, and discussing with other team members." ASSESSMENT ASSESSMENT Assessment LUANN LEUNG May 28, 2025 19:35
--- NOTE | 2025-05-28 20:44 | DVHPN2 ---
Progress Note - Dictate Date Seen: May 28, 2025 (Time of visit 2 pm) Medical Necessity Reason Pt with a Central, PICC or Fol: Yes Subjective Patient is intubated sedated Leukocytosis is improving vital signs Vital Sign Date Time Temp Pulse Resp B/P (MAP) Pulse Ox O2 Delivery O2 Flow Rate FiO2 05/28/25 19:45 0 05/28/25 19:15 30 05/28/25 19:00 9 05/28/25 18:10 30 05/28/25 17:40 Mechanical Ventilator+ 05/28/25 16:00 97.2 97.2 Total Intake and Output 05/27/25 05/27/25 05/28/25 15:00 23:00 07:00 Intake Total 1556.282 ml 1327.688 ml 745.938 ml Output Total 130 ml 120 ml Balance 1556.282 ml 1197.688 ml 625.938 ml medications Current Medications Medications Dose Ordered Sig/Jeremy Route Start Time Stop Time Status Last Admin Dose Admin Morphine Sulfate 3 mg Q2HPRN PRN IV 05/28/25 17:00 05/28/25 18:36 3 MG Lorazepam 1 mg Q2HP PRN IV 05/28/25 17:00 objective Peep of five FiO2 50% hemodynamically stable Abdomen is soft nontender nondistended laboratory and microbiology Laboratory Tests 05/28/25 03:30 Test 05/28/25 03:30 Range/Units Serum Glucose 143 H 74-106 mg/dL Problems(with codes): (1) Leukocytosis (2) Acute renal failure (3) Ethylene glycol poisoning (4) Lactic acidosis (5) Metabolic encephalopathy (6) Acute respiratory failure Prognosis Plan Family was at bedside this afternoon I was considering initiating possible tube feedings However after discussing with the primary team The family decided to make her a terminal wean Patient was extubated this evening and patient had no spontaneous respirations and bradycardia Prognosis is poor Dietary Evaluation Review Comments: 1. TPN if NPO>7 days 2. TF glucerna@40ml/hr providing 58g protein, 1152kcal 773ml free water, meeting pt's protein needs 100%, energy need 76% 3. Reassess when pt is extubated Expected Outcomes/Goals: Gradual wt loss, avoid nephrotic syndrome Plan discussed with: Other (Nurse and DR Carcamo) MAXIMINO DANIEL MD May 28, 2025 20:44
--- NOTE | 2025-05-29 19:03 | DVHPNRES ---
Progress Note Date Seen: May 28, 2025 Resident Creating Document: LUANN CHATTERJEE RESDIENT Medical Necessity Reason Pt with a Central, PICC or Fol: Yes Subjective Review of Systems Patient is a 74-year-old female with a medical history of depression hypertension, and constipation was brought in by EMS yesterday morning (05/25) from home with a chief complaint of altered mental status and labored breathing. Per patient's , As per the family patient was apparently doing well until last night and only complained of constipation and was not eating well for the last 3-4 weeks. In the morning patient was found in the restroom altered and had labored breathing but was still responsive, there was a large bowel movement and the patient had vomited, no blood in the vomitus, was yellowish in color. Per EMS upon arrival to scene patient was found to have labored breathing with a respiratory rate from 4-15 breaths, tachycardiac with a HR of 135, and hypertensive with a blood pressure of 184/46mmHg. On arrival to the ER patient was altered and had to be intubated and put on mechanical ventilation for airway protection and respiratory distress. Past medical history: Hypertension, major depression but not on any medication Past surgical history: Cholecystectomy and bladder prolapse surgery Social history: No reported alcohol, smoking, drug use and lives with the , at baseline mobile and does not use any walker/wheelchair Home medications: Lisinopril 10 mg, senna and antiacid Today morning patient seen and examined at the bedside. Patient is sedated and on mechanical ventilation. Objective vital signs Vital Sign Date Time Temp Pulse Resp B/P (MAP) Pulse Ox O2 Delivery O2 Flow Rate FiO2 05/28/25 19:45 0 05/28/25 19:15 30 05/28/25 19:00 9 05/28/25 18:10 30 05/28/25 17:40 Mechanical Ventilator+ 05/28/25 16:00 97.2 97.2 Total Intake and Output 05/28/25 05/28/25 05/29/25 15:00 23:00 07:00 Intake Total 905.495 ml 381.625 ml Output Total 110 ml Balance 905.495 ml 271.625 ml Examination General: RASS -4, afebrile, mucosae are moist Cardiovascular: Irregular S1 and S2. No murmurs, gallops or rubs Respiratory: Mechanically assisted ventilation, equal bilateral airway entree. Clear lung sounds on auscultation Mechanical ventilation setting: VT 450, RR 26, FiO2 35% and peep 5 GI: Soft, nontender, no organomegaly, decreased bowel sounds, NG tube placed with scant amount of greenish discharge : Courtney catheter n place, no urine output, clear yellow urine in collection bag MSK/skin: Mobilization of limbs cannot be evaluated. Skin is dry and warm. IV accesses: Right IJ Delmer catheter, left IJ central line, right side radial A- line, and right peripheral line Neurological: Orientation cannot be assessed. No apparent motor no sensitive deficits. Bilateral pupils mid dilated, sluggish reaction laboratory and microbiology Laboratory Tests 05/28/25 03:30 Test 05/28/25 03:30 Range/Units Serum Glucose 143 H 74-106 mg/dL Microbiology Date/Time Source Procedure Growth Status 05/25/25 19:43 Urine - [place] Urine Culture - Final Complete 05/25/25 18:29 Nose MRSA Screen - Final Complete 05/25/25 09:20 Sputum Gram Stain - Final Complete 05/25/25 09:20 Sputum Respiratory Culture - Final Complete 05/25/25 09:07 Blood Blood Culture - Preliminary NO GROWTH AFTER 72 HOURS OF INCUBATION. Resulted Problem List/Assessment/Plan Problem List/Assessment/Plan This is a 74-year-old female with past medical history of hypertension and depression brought in by EMS due to altered mental status and labored breaths. She was admitted and intubated on 05/25. NEURO: Acute toxic/metabolic encephalopathy, likely due to possible lysol ingestion/metabolic acidosis/sepsis Suicidal attempt, possibly due to antifreeze * Head CT scan 05/25 shows no significant intracranial abnormality * RASS score -4 * Plan: Versed and fentanyl CARDIOVASCULAR: Possible septic/distributive shock New onset atrial fibrillation with RVR Acquired hypercoagulability History of Hypertension * EKGs 05/25, AFib with RVR with no significant ST or T-wave changes * Plan: Continue Levophed, vasopressin RESPIRATORY: Acute hypoxic respiratory failure, likely due to metabolic encephalopathy * Chest x-ray shows pulmonary vascular congestion * Plan: Mechanical ventilation and IV antibiotic GENITOURINARY/FLUID: PAPO, likely VMN * Hemodialysis performed on 05/26, 05/27 * Plan: urine microscopy GASTROINTESTINAL/NUTRITION: Possible Antifreeze intoxication * Ammonia raised at 354>>63 * Plan: Protonix 40 b.i.d INFECTIOUS DISEASE: Septic shock, due to sepsis Sepsis, likely due to UTI Complicated UTI * UA 05/26 shows turbid urine, blood +2, nitrite +2, leukocyte esterase +3, RBC 32 and WBC 104 * linezolid (05/25 stopped on 05/27) * Plan: Panculture, IV antibiotic Zosyn (05/25) HEMATOLOGY: * DVT prophylaxis: Lovenox ENDOCRINE: Severe Metabolic acidosis with raised anion gap and osmolar gap, possibly due to antifreeze ingestion * 18 ampules of Bicarbonate given * Plan: HD performed on 05/26 METABOLIC: Hyperphosphatemia Hypernatremia, possibly due to bicarbonate * Volume deficits: 5.4L * Plan: D5W at 70 mL/hour MSK/SKIN: * There is a small abrasion with superficial crusted blood on right lower limb DIET: NPO DVT prophylax: Lovenox GI prophylaxis: Protonix Bowel regimen: LINES/DEVICES ETT: Intubated on 05/25 IV access: Right IJ Delmer catheter (05/25), left IJ central line (05/25), right radial A-line (05/26) Drips: Levophed, dopamine, Versed and fentanyl Courtney catheter: Placed on 05/25 Disposition: Continue ICU status Family: Patients , son and daughter updated at the bedside. Critical care time: Spent >83 min, spent in direct critical care, including evaluation, management, review of labs/imaging, and multidisciplinary/family discussions, (excluding any procedures). Case discussed with Dr. Calderon Plan discussed with: Patient, Other Dietary Evaluation Review Comments: 1. TPN if NPO>7 days 2. TF glucerna@40ml/hr providing 58g protein, 1152kcal 773ml free water, meeting pt's protein needs 100%, energy need 76% 3. Reassess when pt is extubated Expected Outcomes/Goals: Gradual wt loss, avoid nephrotic syndrome LUANN CHATTERJEE May 29, 2025 19:03
== END 2025-05-28 20:10 | DRG 871 ==
LOC: EDBD 08:50 → ER 08:50 → OVERFLOW 14:37 → ICU WEST 17:34
PROVIDERS: ADMIT Internal Medicine; ATTEND Internal Medicine
PROC: 02HV33Z Insertion of Infusion Device into Superior Vena Cava, Percutaneous Approach (ICD-10-PCS; principal; 2025-05-25)
PROC: 0BH17EZ Insertion of Endotracheal Airway into Trachea, Via Natural or Artificial Opening (ICD-10-PCS; 2025-05-25)
PROC: 5A1945Z Respiratory Ventilation, 24-96 Consecutive Hours (ICD-10-PCS; 2025-05-25)
PROC: 05HM33Z Insertion of Infusion Device into Right Internal Jugular Vein, Percutaneous Approach (ICD-10-PCS; 2025-05-26)
PROC: 03HY32Z Insertion of Monitoring Device into Upper Artery, Percutaneous Approach (ICD-10-PCS; 2025-05-26)
PROC: 5A1D70Z Performance of Urinary Filtration, Intermittent, Less than 6 Hours Per Day (ICD-10-PCS; 2025-05-26)
PROC: 5A1D70Z Performance of Urinary Filtration, Intermittent, Less than 6 Hours Per Day (ICD-10-PCS; 2025-05-27)
DX: A41.9 Sepsis, unspecified organism (principal); G92.8 Other toxic encephalopathy; J96.01 Acute respiratory failure with hypoxia; R65.21 Severe sepsis with septic shock; N17.0 Acute kidney failure with tubular necrosis; E87.20 Acidosis, unspecified; N39.0 Urinary tract infection, site not specified; E87.0 Hyperosmolality and hypernatremia; N18.9 Chronic kidney disease, unspecified; D50.9 Iron deficiency anemia, unspecified; E86.0 Dehydration; I48.0 Paroxysmal atrial fibrillation; E86.1 Hypovolemia; K59.00 Constipation, unspecified; R73.9 Hyperglycemia, unspecified; E83.51 Hypocalcemia; E83.39 Other disorders of phosphorus metabolism; I12.9 Hypertensive chronic kidney disease with stage 1 through stage 4 chronic kidney disease, or unspecified chronic kidney disease; T50.995A Adverse effect of other drugs, medicaments and biological substances, initial encounter; Z79.899 Other long term (current) drug therapy; Z90.49 Acquired absence of other specified parts of digestive tract; Y92.89 Other specified places as the place of occurrence of the external cause
CPT/HCPCS: 31500; 36415; 36556; 36600; 36620; 70450; 71045; 74175; 80048; 80053; 80074; 80202; 80307; 80320; 80329; 81001; 82010; 82140; 82306; 82550; 82570; 82607; 82728; 82805; 82962; 83036; 83540; 83550; 83605; 83615; 83690; 83735; 83880; 83930; 83935; 84100; 84132; 84156; 84300; 84443; 84484; 85007; 85014; 85018; 85025; 85027; 85610; 85730; 87040; 87070; 87081; 87086; 87205; 87340; 90935; 93005; 93306; 94002; 94003; 99291; G0378; J0330; J1642; J1815; J2470; J2543; J2704; J3480; J7060; P9047